=== PATIENT | female | born 1975 | race Caucasian/White ===

== ENCOUNTER → 2018-03-28 12:23 | Outpatient (CLI) | payer OTHER, SELFPAY ==
[2018-03-28 14:10] LABS: Erythrocyte Sedimentation Rate 19 mm/hr (0-20)
[2018-03-28 14:37] LABS: Anion Gap 8 (5-15); BUN 13 mg/dL (7-18); BUN/Creat Ratio 24.6 RATIO (10-20); Chloride 105 mmol/L (98-107); Creatinine, Serum 0.53 mg/dL (0.55-1.02); EST Glomerular Filtration Rate 135 mL/min (>60); Est Glom Filt Rate - Afr Amer 164 mL/min (>60); Glucose 74 mg/dL (74-106); Potassium 3.8 mmol/L (3.5-5.1); Sodium Level 139 mmol/L (136-145)
== END ==
PROVIDERS: Family Provider Family Medicine; PCP Family Medicine; Visit Provider Family Medicine
DX: M13.0 Polyarthritis, unspecified (principal)
CPT/HCPCS: 36415; 80048; 85652; 86140

== ENCOUNTER → 2018-04-26 14:58 | Outpatient (CLI) | payer OTHER, SELFPAY ==
[2018-05-01 09:20] LABS: HPV Reflexed? NOT INDICATED
== END ==
PROVIDERS: Visit Provider Obstetrics & Gynecology
DX: Z12.4 Encounter for screening for malignant neoplasm of cervix (principal)
CPT/HCPCS: 88175; G0145

== ENCOUNTER → 2018-07-08 12:58 | Outpatient (CLI) | payer OTHER, SELFPAY ==
--- NOTE | 2018-07-08 13:00 | BI_ITS ---
MAMMOGRAPHY - BILATERAL SCREENING REASON FOR EXAM: Female, 42 years old. Routine annual screening examination. PERTINENT HISTORY: Non-contributory. TECHNIQUE: Digital bilateral breast lauren (3D mammographic acquisition) in the CC and MLO projections. 2-D mediolateral oblique (MLO) and craniocaudad (CC) views of both breasts were obtained. CAD: Full Field Digital Mammography with Computer Added Detection was performed. COMPARISON: Comparison is made with prior study dated July 05, 2017 and September 01, 2014. FINDINGS: Breast Composition: The breasts are heterogeneously dense, which may obscure small masses. There are no dominant masses or suspicious calcifications. No other significant abnormalities are identified. There has been no significant change since the prior study. BI/SCREENING MAMM (CAD), BILAT IMPRESSION: Stable bilateral screening mammogram. Yearly follow-up mammogram recommended. (A) ASSESSMENT CATEGORY: BIRADS Category 1: Negative. A letter regarding these results will be sent to the patient by the facility within 30 days. Approximately 10% of breast cancers are not detected by mammography. A normal mammogram should not delay biopsy of a clinically suspicious abnormality. [id number] Electronically Signed: Gabo Christiansen MD at 14:59 EST Tel [phone], Service support ,
--- OUTSIDE RECORDS SUMMARY | 2018-08-31 20:22 | XMS RPT_ITS ---
:1975 Author Organization OHIP Care Team Providers Name Role Phone YANIRA DRAPER Attending Unavailable YANIRA DRAPER Referring Unavailable YANIRA DRAPER Attending Unavailable YANIRA DRAPER Referring Unavailable JUANCHO HASKINS Attending Unavailable MARGIE YADAV Referring Unavailable CARLI GARCÍA Attending Unavailable MARGIE YADAV Referring Unavailable JUANCHO HASKINS Referring Unavailable Margie Yadav Attending Unavailable Margie Yadav Primary Care Unavailable Patricia Solo Attending Unavailable Patricia Solo Attending Unavailable Patricia Solo Referring Unavailable Margie Yadav Primary Care Unavailable PROBLEMS PROBLEMS DATE TYPE CONDITION / CODE ATTENDING STATUS SOURCE 01/10/2011 Active Other specified NA Active [facility] abnormal Main [place] immunological Repository findings in serum / R76.8(ICD-10) 07/12/2018 Active Pain in unspecified NA Active [facility] foot / [place] M79.673(ICD-10) Repository 07/12/2018 Active Pain in unspecified NA Active [facility] joint / [place] M25.50(ICD-10) Repository 06/08/2018 Active Encounter for NA Active [facility] immunization / [place] Z23(ICD-10) Repository 04/26/2018 Unknown Z12.4 - Encounter Patricia Solo Active [place] for screening for Community malignant neoplasm [facility] / Repository Z12.4(ICD-10) PROCEDURES PROCEDURES No Procedure Records FoundRESULTS RESULTS COMP METABOLIC PANEL Collected: 07/12/2018 Status: F Source: [facility] 4:11 [facility] REPOSITORY TYPE CODE TESTS RESULT OUT OF REFERENCE UNITS RANGE LAB TP 6.3-8.0 g/dL Protein, Total 7.7 LAB ALB 3.9-4.9 g/dL Albumin 4.6 LAB CA 8.5-10.2 mg/dL Calcium, Total 9.5 LAB TBIL 0.2-1.3 mg/dL Bilirubin, Total 0.2 LAB ALKP 34-123 U/L Alkaline Phosphatase 75 LAB AST 13-35 U/L AST 17 LAB GLU 74-99 mg/dL Glucose 87 Result Comment: The [place] Diabetes Association (ADA) provides guidance for cutoff values for fasting glucose and random glucose. The ADA defines fasting as no caloric intake for at least 8 hours. Fas ting plasma glucose results between 100 to 125 mg/dL indicate increased risk for diabetes (prediabetes). Fasting plasma glucose results greater than or equal to 126 mg/dL meet the criteria for diagnosis of diabetes. In the absence of unequivocal hyperglycemia, results should be confirmed by repeat testing. In a patient with classic symptoms of hyperglycemia or hyperglycemic crisis, random plasma glucose results greater than or equal to 200 mg/dL meet the criteria for diagnosis of diabetes. Reference: Standards of Medical Care in Diabetes 2016, [place] Diabetes Association. Diabetes Care. 2016.39(Suppl 1). LAB BUN 7-21 mg/dL BUN 11 LAB CRET 0.58-0.96 mg/dL Creatinine 0.58 LAB NA 136-144 mmol/L Sodium 137 LAB K 3.7-5.1 mmol/L Potassium 3.8 LAB CL 97-105 mmol/L Chloride 100 LAB CO2 22-30 mmol/L CO2 27 LAB AGAP 9-18 mmol/L Anion Gap 10 LAB ALT 7-38 U/L ALT 16 LAB GFRAA eGFR- Amer. >60 LAB GFRNAA . eGFR-All Other Races >60 Result Comment: eGFR (Estimated GFR) Units of measure: mL/min/1.73 meters squared eGFR is derived from the reexpressed MDRD Study equation using the following parameters: serum creatinine, age, gender and race. The creatinine assay has been calibrated to be traceable to IDMS. An eGFR <60 mL/min/1.73m2 for >3 months is consistent with chronic kidney disease. Refer to KDOQI guidelines for clinical interpretation. In patients with unstable renal function, e.g. those with acute kidney injury, the eGFR may not accurately reflect actual GFR. Performed By: #### CMP, HSCRP, TSH, HOMCYS, CBCDIF, FREET3, FT4, B12, VITD, ANAIFR, ANABLL, CCP, ENAID, DNA, CRITH #### [facility] [address] [phone] #### RHEUMA #### [facility] [address] [place] [address] [phone] ULTRA-SENSITIVE CRP Collected: 07/12/2018 Status: F Source: [place] 4:11 PM [facility] REPOSITORY TYPE CODE TESTS RESULT OUT OF REFERENCE UNITS RANGE LAB CRPUS <3.1 mg/L High UltraSens 14.3 C-ReacProt Result Comment: (NOTE) hsCRP < 1.0 mg/L, relative risk is low hsCRP 1.0-3.0 mg/L, relative risk is average hsCRP > 3.0 mg/L, relative risk is high Reference: Nati TA, Yanira GA, Nehemias RW, et al. Markers of Inflammation and Cardiovascular Disease. Application to Clinical and Public Health Practice. A Statement for Healthcare Professionals From the Centers for Disease Control and Prevention and the [place] Heart Association. Circulation 2003;107:499-511. Performed By: #### CMP, HSCRP, TSH, HOMCYS, CBCDIF, FREET3, FT4, B12, VITD, ANAIFR, ANABLL, CCP, ENAID, DNA, CRITH #### [facility] [address] [address] #### RHEUMA #### [facility] [address] [place] [address] [phone] TSH Collected: 07/12/2018 Status: F Source: [place] 4:11 PM [facility] REPOSITORY TYPE CODE TESTS RESULT OUT OF RANGE REFERENCE UNITS LAB TSH 0.400-5.500 uU/mL TSH 3.070 Result Comment: If the patient is , TSH reference range varies by gestational period: First Trimester 0.100-2.500 uU/mL Second Trimester 0.200-3.000 uU/mL Third Trimester 0.300-3.000 uU/mL References: 1. Lewis L, Manuel M, Nehemias EK, et al. Management of Thyroid Dysfunction during and : An Endocrine Society Clinical Practice Guideline. J Clin Endocrinol Metab, 2012:97:0328-5040. 2. Lei BTUTS. Overview of thyroid disease in . UpToDate. 2016. Accessed on January 21, 2016. Performed By: #### CMP, HSCRP, TSH, HOMCYS, CBCDIF, FREET3, FT4, B12, VITD, ANAIFR, ANABLL, CCP, ENAID, DNA, CRITH #### [place] [id number] [place] [phone] #### RHEUMA #### [facility] [address] [place] [address] [phone] HOMOCYSTEINE Collected: 07/12/2018 Status: F Source: [place] 4:11 PM [facility] REPOSITORY TYPE CODE TESTS RESULT OUT OF REFERENCE UNITS RANGE LAB HOMCYS <15.1 umol/L Homocysteine 8.5 Performed By: #### CMP, HSCRP, TSH, HOMCYS, CBCDIF, FREET3, FT4, B12, VITD, ANAIFR, ANABLL, CCP, ENAID, DNA, CRITH #### [place] [id number] [place] [address] #### RHEUMA #### [facility] [address] [place] [address] [phone] CBC AND DIFFERENTIAL Collected: 07/12/2018 Status: F Source: [place] 4:11 PM [facility] REPOSITORY TYPE CODE TESTS RESULT OUT OF REFERENCE UNITS RANGE LAB WBC 3.70-11.00 k/uL WBC 6.00 LAB RBC 3.90-5.20 m/uL RBC 4.70 LAB HGB 11.5-15.5 g/dL Hemoglobin 12.9 LAB HCT 36.0-46.0 % Hematocrit 41.4 LAB MCV 80.0-100.0 fL MCV 88.1 LAB MCH 26.0-34.0 pG MCH 27.4 LAB MCHC 30.5-36.0 g/dL MCHC 31.2 LAB RDWCV 11.5-15.0 % RDW-CV 13.0 LAB PLTCT 150-400 k/uL Platelet Count 238 LAB MPV 9.0-12.7 fL MPV 11.1 LAB ANEUT % Neut% 76.9 LAB AANEUT 1.45-7.50 k/uL Abs Neut 4.59 LAB ALYMP % Lymph% 16.7 LAB AALYMP 1.00-4.00 k/uL Abs Lymph 1.00 LAB AMONO % Lipscomb% 5.3 LAB AAMONO <0.87 k/uL Abs Lipscomb 0.32 LAB AEOS % Eosin% 0.8 LAB AAEOS <0.46 k/uL Abs Eosin 0.05 LAB ABASO % Baso% 0.3 LAB AABASO <0.11 k/uL Abs Baso <0.03 LAB AUNRBC 0 /100 WBC NRBCs 0.0 LAB ABNRBC <0.01 k/uL Absolute nRBC <0.01 LAB DTYP DTYPE Auto Diff Performed By: #### CMP, HSCRP, TSH, HOMCYS, CBCDIF, FREET3, FT4, B12, VITD, ANAIFR, ANABLL, CCP, ENAID, DNA, CRITH #### [place] [address] #### RHEUMA #### [facility] [address] [place] [address] [phone] FREE T3 Collected: 07/12/2018 Status: F Source: [place] 4:11 [facility] REPOSITORY TYPE CODE TESTS RESULT OUT OF RANGE REFERENCE UNITS LAB FREET3 2.3-4.1 pg/mL Free T3 3.0 Performed By: #### CMP, HSCRP, TSH, HOMCYS, CBCDIF, FREET3, FT4, B12, VITD, ANAIFR, ANABLL, CCP, ENAID, DNA, CRITH #### [place] [address] [id number] [place] [address] #### RHEUMA #### [facility] [address] [place] [address] [phone] FREE T4 Collected: 07/12/2018 Status: F Source: [place] 4:11 PM [facility] REPOSITORY TYPE CODE TESTS RESULT OUT OF RANGE REFERENCE UNITS LAB FT4 0.9-1.7 ng/dL Free T4 1.4 Performed By: #### CMP, HSCRP, TSH, HOMCYS, CBCDIF, FREET3, FT4, B12, VITD, ANAIFR, ANABLL, CCP, ENAID, DNA, CRITH #### [place] [phone] #### RHEUMA #### [address] [address] [phone] VITAMIN B12 Collected: 07/12/2018 Status: F Source: [place] 4:11 PM [facility] REPOSITORY TYPE CODE TESTS RESULT OUT OF REFERENCE UNITS RANGE LAB B12 232-1245 pg/mL Vitamin B12 363 Performed By: #### CMP, HSCRP, TSH, HOMCYS, CBCDIF, FREET3, FT4, B12, VITD, ANAIFR, ANABLL, CCP, ENAID, DNA, CRITH #### [place] [phone] #### RHEUMA #### [address] [address] [phone] VITAMIN D 25 HYDROXY Collected: 07/12/2018 Status: F Source: [place] 4:11 PM [facility] REPOSITORY TYPE CODE TESTS RESULT OUT OF REFERENCE UNITS RANGE LAB VITD 31.0-80.0 ng/mL Vitamin D 25 56.1 Hydroxy Result Comment: Classification of 25 [place] Vitamin D status: Insufficiency/Moderate Deficiency: < or = 30 ng/mL Sufficiency/Optimal Levels: 31 to 80 ng/mL Toxicity: > 100 ng/mL Test performed by chemiluminescent immunoassay. Performed By: #### CMP, HSCRP, TSH, HOMCYS, CBCDIF, FREET3, FT4, B12, VITD, ANAIFR, ANABLL, CCP, ENAID, DNA, CRITH #### [place] [phone] #### RHEUMA #### [address] [address] [phone] NORMA BY IFA W/REFLEX Collected: 07/12/2018 Status: F Source: L[place] 4:11 [facility] REPOSITORY TYPE CODE TESTS RESULT OUT OF RANGE REFERENCE UNITS LAB ANASC Negative Abnormal Alert NORMA Positive Result Comment: Normal range : negative at <1:80 serum dilution. LAB GINA Negative Abnormal >1:1280 Alert NORMA Titer LAB ANAP NORMA Pattern Nucleolar Performed By: #### CMP, HSCRP, TSH, HOMCYS, CBCDIF, FREET3, FT4, B12, VITD, ANAIFR, ANABLL, CCP, ENAID, DNA, CRITH #### [place] [address] #### RHEUMA #### [address] [address] [phone] NORMA IFA TITER BILL Collected: 07/12/2018 Status: F Source: [place] 4:11 [facility] REPOSITORY TYPE CODE TESTS RESULT OUT OF REFERENCE UNITS RANGE LAB ANABLL NORMA Billed for IFA Titer services Bill performed Performed By: #### CMP, HSCRP, TSH, HOMCYS, CBCDIF, FREET3, FT4, B12, VITD, ANAIFR, ANABLL, CCP, ENAID, DNA, CRITH #### [place] [address] #### RHEUMA #### [address] [address] [phone] CCP ANTIBODY, IGG Collected: 07/12/2018 Status: F Source: LYLE 4:[address] [place] [address] REPOSITORY TYPE CODE TESTS RESULT OUT OF REFERENCE UNITS RANGE LAB CCPABG <20 Units CCP <15 Antibody, IgG Result Comment: < 20 units: Negative 20-39 units: Weak Positive 40-59 units: Moderate Positive > 60 units: Strong Positive The following results were obtained with the [employer] QUANTA Lite CCP3 IgG ARIANNA. Anti-CCP values obtained with different manufacturers' assay methods may not be used interchangeably. The magnitude of the reported IgG levels cannot be correlated to an endpoint titer. Performed By: #### CMP, HSCRP, TSH, HOMCYS, CBCDIF, FREET3, FT4, B12, VITD, ANAIFR, ANABLL, CCP, ENAID, DNA, CRITH #### [place] [id number] [place] [address] #### RHEUMA #### [address] [address] [phone] AUTSIN ANTIBODY PANEL Collected: 07/12/2018 Status: F Source: [place] 4:11 PM [facility] [place] REPOSITORY TYPE CODE TESTS RESULT OUT OF REFERENCE UNITS RANGE LAB SMIB <1.0 AI Sm Antibody <0.2 Result Comment: NEGATIVE Negative: <1.0 AI Positive: >0.9 AI LAB RNPIB <1.0 AI DEALER SALES MANAGER Antibody <0.2 Result Comment: NEGATIVE Negative: <1.0 AI Positive: >0.9 AI LAB SSAIB <1.0 AI SSA Antibody <0.2 Result Comment: NEGATIVE Negative: <1.0 AI Positive: >0.9 AI LAB SSBIB <1.0 AI High SSB Antibody 1.4 Result Comment: POSITIVE Negative: <1.0 AI Positive: >0.9 AI LAB CENTIB <1.0 AI Centromere High >8.0 Result Comment: POSITIVE Negative: <1.0 AI Positive: >0.9 AI LAB SCLIB <1.0 AI Scleroderma IgG Ab <0.2 Result Comment: NEGATIVE Negative: <1.0 AI Positive: >0.9 AI LAB JO1IB <1.0 AI LISA 1 Antibody <0.2 Result Comment: NEGATIVE Negative: <1.0 AI Positive: >0.9 AI LAB RRNPIB <1.0 AI Ribosomal DEALER SALES MANAGER <0.2 Result Comment: NEGATIVE Negative: <1.0 AI Positive: >0.9 AI LAB CHRMIB <1.0 AI Chromatin Antibody <0.2 Result Comment: NEGATIVE Negative: <1.0 AI Positive: >0.9 AI Performed By: #### CMP, HSCRP, TSH, HOMCYS, CBCDIF, FREET3, FT4, B12, VITD, ANAIFR, ANABLL, CCP, ENAID, DNA, CRITH #### [facility] [address] [place], [place] [address] #### RHEUMA #### [address] [address] [phone] DNA ANTIBODY W/ CONF. Collected: 07/12/2018 Status: F Source: [place] 4:11 [facility] REPOSITORY TYPE CODE TESTS RESULT OUT OF REFERENCE UNITS RANGE LAB DNA <30 IU/mL High DNA Antibody 116 w/ Conf. Result Comment: Positive for ds DNA Antibodies Negative: <30 IU/mL Equivocal: 30-74 IU/mL Positive: >74 IU/mL Performed By: #### CMP, HSCRP, TSH, HOMCYS, CBCDIF, FREET3, FT4, B12, VITD, ANAIFR, ANABLL, CCP, ENAID, DNA, CRITH #### [facility] [address] [place], [place] [address] #### RHEUMA #### [facility] [address] [place] [address] [phone] OMEGACHECK Collected: 07/12/2018 Status: F Source: [place] 4:11 [facility] REPOSITORY TYPE CODE TESTS RESULT OUT OF REFERENCE UNITS RANGE LAB OMEGAL >5.4 % by wt Low OmegaCheck 4.6 Result Comment: (NOTE) Increasing blood levels of long-chain n-3 fatty acids are associated with a lower risk of sudden cardiac (1). Based on the top (75th percentile) and bottom (25th percentile) quartiles of the CHL reference population, the following risk categories were established for OmegaCheck: A cut-off of >=5.5% by wt defines a population at low relative risk, 3.8-5.4% by wt defines a population at moderate relative risk, and <=3.7% by wt defines a population at high relative risk of sudden cardiac . The totality of the scientific evidence demonstrates that when consumption of fish oils is limited to 3 g/day or less of EPA and DHA, there is no significant risk for increased bleeding time beyond the normal range. A daily dosage of 1 gram of EPA and DHA lowers the circulating triglycerides by about 7-10% within 2 to 3 weeks. (Reference: 1-Checo harrison al. NEJ. 2002; 346: 1628-9261). This test is performed by a Liquid Chromatography-Tandem Mass Spectrometry (LC/MS/MS) method. This test was developed and its performance characteristics determined by the [facility]. It has not been cleared or approved by the U.S. FDA. The [facility] is regulated under Clinical Laboratory Improvement Amendments (CLIA) as qualified to perform high-complexity testing. This test is used for clinical purposes. It should not be regarded as investigational or for research. LAB ARACHE <5.0 High Arach A/EPA 11.9 Ratio Result Comment: (NOTE) Test performed at: [facility] [address], [facility] [address] [place] [address] Christina Duff, PH.D., DABCC, FACB LAB OMEG63 <4.5 High [place]trim-6/3 Ratio 8.2 LAB OMEGA3 % by wt [place]trim 3 Total 4.6 LAB OMEEPA >2.0 % by wt Low EPA 0.8 LAB OMEDPA >1.0 % by wt DPA 1.1 LAB OMEDHA >4.0 % by wt Low DHA 2.7 LAB OMEGA6 % by wt [place]trim 6 Total 37.8 Result Comment: (NOTE) [facility] measures a number of omega-6 fatty acids with AA and LA being the two most abundant forms reported. LAB ARACHA <9.0 % by wt Arachidonic Acid High 9.5 LAB ARACHL <20.0 % by wt Linoleic Acid High 26.3 Performed By: #### CMP, HSCRP, TSH, HOMCYS, CBCDIF, FREET3, FT4, B12, VITD, ANAIFR, ANABLL, CCP, ENAID, DNA, CRITH #### [facility] [address] [place], [place] [address] #### RHEUMA #### [facility] [address] [place] [address] [phone] RHEUMATOID FCTOR MGA Collected: 07/12/2018 Status: F Source: L[place] 4:11 PM [facility] REPOSITORY TYPE CODE TESTS RESULT OUT OF REFERENCE UNITS RANGE LAB RHFIGG 0-6 Units High Rheumatoid Fctor 8 IgG Result Comment: (NOTE) INTERPRETIVE INFORMATION: Rheumatoid Factor, IgG by ARIANNA The presence of all three rheumatoid factor (RF) isotypes at abnormal levels has high specificity for a diagnosis of rheumatoid arthritis (RA). However, the presence of RF isotypes in any combination may be found in a variety of conditions, including Sjogren syndrome and hepatitis infections. Performed by [facility], [address] [place] [address] www.[email or web address], Ivan Florentino MD, Lab. Director LAB RHFIGM 0-6 Units Rheumatoid High Fctor IgM 24 Result Comment: (NOTE) INTERPRETIVE INFORMATION: Rheumatoid Factor, IgM by ARIANNA The presence of all three rheumatoid factor (RF) isotypes at abnormal levels has high specificity for a diagnosis of rheumatoid arthritis (RA). However, the presence of RF isotypes in any combination may be found in a variety of conditions, including Sjogren syndrome and hepatitis infections. LAB RHFIGA 0-6 Units Rheumatoid Fctor IgA 2 Result Comment: (NOTE) INTERPRETIVE INFORMATION: Rheumatoid Factor, IgA by ARIANNA The presence of all three rheumatoid factor (RF) isotypes at abnormal levels has high specificity for a diagnosis of rheumatoid arthritis (RA). However, the presence of RF isotypes in any combination may be found in a variety of conditions, including Sjogren syndrome and hepatitis infections. Performed By: #### CMP, HSCRP, TSH, HOMCYS, CBCDIF, FREET3, FT4, B12, VITD, ANAIFR, ANABLL, CCP, ENAID, DNA, CRITH #### [facility] [address] [place] [address] #### RHEUMA #### [address] [address] [phone] CRITHIDIA LUCILIAE Collected: 07/12/2018 Status: F Source: [place] 4:11 PM [facility] [place] REPOSITORY TYPE CODE TESTS RESULT OUT OF REFERENCE UNITS RANGE LAB CRI Negative Crithidia Negative luciliae Performed By: #### CMP, HSCRP, TSH, HOMCYS, CBCDIF, FREET3, FT4, B12, VITD, ANAIFR, ANABLL, CCP, ENAID, DNA, CRITH #### [facility] [address] [place] [address] #### RHEUMA #### [facility] [address] [place] [address] [phone] SCREENING MAMM (CAD), Observed: 07/08/2018 Status: F Source: [place] B[place] 1:00 [facility] REPOSITORY [facility] Imaging Services [address] [place] [address] SCREENING MAMM (CAD), BILAT MR#: [id number] Acct: [id number] Name: BEE MONTEIRO Rep #: [id number] : 1975 F 42 From: Gabo Christiansen MD PCP: Margie Yadav MD Status: REG CLI Study: SCREENING MAMM (CAD), BILAT Date of Exam: 07/08/18 Exam# [id number] Ordering Dr: Patricia Solo MD MAMMOGRAPHY - BILATERAL SCREENING REASON FOR EXAM: Female, 42 years old. Routine annual screening examination. PERTINENT HISTORY: Non-contributory. TECHNIQUE: Digital bilateral breast lauren (3D mammographic acquisition) in the CC and MLO projections. 2-D mediolateral oblique (MLO) and craniocaudad (CC) views of both breasts were obtained. CAD: Full Field Digital Mammography with Computer Added Detection was performed. COMPARISON: Comparison is made with prior study dated July 05, 2017 and September 01, 2014. FINDINGS: Breast Composition: The breasts are heterogeneously dense, which may obscure small masses. There are no dominant masses or suspicious calcifications. No other significant abnormalities are identified. There has been no significant change since the prior study. BI/SCREENING MAMM (CAD), BILAT IMPRESSION: Stable bilateral screening mammogram. Yearly follow-up mammogram recommended. (A) ASSESSMENT CATEGORY: BIRADS Category 1: Negative. A letter regarding these results will be sent to the patient by the facility within 30 days. Approximately 10% of breast cancers are not detected by mammography. A normal mammogram should not delay biopsy of a clinically suspicious abnormality. [id number] Electronically Signed: Gabo Christiansen MD at 14:59 EST Tel [phone], Service support , CC: Margie Yadav MD; Patricia Solo MD Senior Software Analyst: Signed CNNURSE Observed: 06/08/2018 Status: COMPLETED Source: [place] 11:00 AM [facility] REPOSITORY Nurse Visit (CORWST) BEE MONTEIRO ([id number]) 1975 F Date Time Provider Department 06/08/18 11:00 AM NURSE [facility] During your visit today, we recorded the following information about you: María Avalos Ma 06/08/2018 11:23 AM Signed 42 year old female here for INACTIVATED INFLUENZA VACCINE. 4492-7360 Season Patient is identified by name and date of : Yes [] CONTRAINDICATIONS color enhanced section Age less than 6 months? No Allergy to eggs, chicken, chicken feathers, or chicken dander? No Allergy to thimerosal (a preservative) or formaldehyde, gelatin? No History of severe reaction to any vaccine component or a previous dose of influenza vaccination? No History of Guillain-[place] Syndrome within 6 weeks after a previous influenza vaccine? No Patient is not moderately or severely ill? No Current temperature greater or equal to 100.4F? No History of Bone Marrow Transplant prior 6 months or solid organ transplant in the past 3 months ? No History of fainting after a prior injection or medical procedure? No- ? If patient has fainted in the past, the CDC recommends sitting or lying down for 15 minutes after the vaccination. [] VERIFICATION color enhanced section Was the answer Yes for any of the above contraindications? No contraindications present. Acceptable to proceed with vaccine. Patient/guardian agrees the above answers are true to the best of their knowledge? Yes Flu vaccine information sheet given? Yes See immunization activity in [facility] for details of immunizations adminstered today. Patient age: [age] year old For The 5936-9722 Flu Season 6-35 months old: Fluzone 0.25 ml - IM (Preservative Free) 3 years of age: Fluzone 0.5 ml - IM (Preservative Free) 3 years and older: Fluzone 0.5 ml- IM-(with Preservatives) 65+ years old: 2-49 years old Fluzone High-Dose 0.5 ml - IM (Preservative Free) FLUMIST- intranasal REMEMBER: If patient is less than 9 years of age and this is the first vaccine of Influenza to be received in any flu season, they should receive a second dose in one months time. Referring Provider: SELF [200] Allergies As of Date: 06/08/2018 Noted Allergy Reaction SEASONAL ALLERGIES 05/20/2018 14 - Other: See Comments Comments: Runny eyes and nose Date Reviewed: 05/20/2018 Reviewed by: Manuel Brennan - Fully Assessed Reason for Visit: Imm/Inj [58] Cmt: Flu Vaccine Primary Visit Diagnosis:Need for vaccination [Z23] Order(s):INFLUENZA VACCINE QUADRIVALENT AGE 3 YRS PLUS + IM [[id number]] Order #: [id number] Prescriptions as of 06/08/2018 Sig: KYM-D 12 HOUR ORAL Take by mouth. OTC NUTRITIONAL SUPPLEMENT Take 1 in AM and 1 before bed OTC NUTRITIONAL SUPPLEMENT Work up to 3 capsules with me* OTC NUTRITIONAL SUPPLEMENT Take 2 capsules by mouth twic* OTC NUTRITIONAL SUPPLEMENT Take one teaspoon (5 ml) opal* OTC NUTRITIONAL SUPPLEMENT Take 1 capsule by mouth once * OTC NUTRITIONAL SUPPLEMENT Take 1 capsule by mouth daily* MELOXICAM ORAL Take by mouth. Problem List As Of Date 06/08/2018 Noted Resolved Sebaceous Cyst [L72.3] INVALID FOR* Wrist Pain [M25.539] INVALID FOR* Lupus [L93.0] INVALID FOR*06/27/2010 Cuboid fracture [S92.213A] INVALID FOR* Cyst INVALID FOR* Sprain and strain of unspecified site of foot [*INVALID FOR* NORMA positive [R76.8] INVALID FOR* Joint pain [M25.50] INVALID FOR* Foot pain [M79.673] INVALID FOR* Hand weakness [R29.898] INVALID FOR* Encounter Status:Closed by MARÍA AVALOS MA on 06/08/18 PROGRESS Observed: 06/04/2018 Status: COMPLETED Source: L[place] 2:01 PM [facility] REPOSITORY HNO ID: [id number] Author: María Avalos Ma Service: (none) Author Type: (none) Type: Progress Notes Filed: 06/08/2018 11:23 AM Note Text: 42 year old female here for INACTIVATED INFLUENZA VACCINE. 3693-4670 Season Patient is identified by name and date of : Yes [] CONTRAINDICATIONS color enhanced section Age less than 6 months? No Allergy to eggs, chicken, chicken feathers, or chicken dander? No Allergy to thimerosal (a preservative) or formaldehyde, gelatin? No History of severe reaction to any vaccine component or a previous dose of influenza vaccination? No History of Guillain-[place] Syndrome within 6 weeks after a previous influenza vaccine? No Patient is not moderately or severely ill? No Current temperature greater or equal to 100.4F? No History of Bone Marrow Transplant prior 6 months or solid organ transplant in the past 3 months ? No History of fainting after a prior injection or medical procedure? No- ? If patient has fainted in the past, the CDC recommends sitting or lying down for 15 minutes after the vaccination. [] VERIFICATION color enhanced section Was the answer Yes for any of the above contraindications? No contraindications present. Acceptable to proceed with vaccine. Patient/guardian agrees the above answers are true to the best of their knowledge? Yes Flu vaccine information sheet given? Yes See immunization activity in [facility] for details of immunizations adminstered today. Patient age: [age] year old For The 1475-1056 Flu Season 6-35 months old: Fluzone 0.25 ml - IM (Preservative Free) 3 years of age: Fluzone 0.5 ml - IM (Preservative Free) 3 years and older: Fluzone 0.5 ml- IM-(with Preservatives) 65+ years old: 2-49 years old Fluzone High-Dose 0.5 ml - IM (Preservative Free) FLUMIST- intranasal REMEMBER: If patient is less than 9 years of age and this is the first vaccine of Influenza to be received in any flu season, they should receive a second dose in one months time. PROGRESS Observed: 05/20/2018 Status: COMPLETED Source: LYLE 1:27 PM [facility] REPOSITORY O ID: [id number] Author: David Stack Service: (none) Author Type: Educator Type: Progress Notes Filed: 05/20/2018 1:31 PM Note Text: GROUP HEALTH DOOR CLAMP OPERATOR COHORT Subjective: I would like to reduce my pain level in my joints and feet. I also have high inflammation levels that I would like to bring down to normal. MSQ: 52 ........................................................................... .................................................................. LIFESTYLE ACTION PLAN: Sleep: No issues listed Exercise/Movement:Aerobic video and walking 3x/30 min, free weights, pilates Nutrition:low carb,no wheat Stress:no excessive stress, does not handle easily. Relationships/Connection: Overall 5/5. Self-Care:Decorating, Reading, Bible Study, spending time with my family Confidence, Willingness and Readiness: somewhat to extremely willing. Extremely supportive. Not very frequent support needed. ........................................................................... ................................................................. FOLLOW UP: Educational materials provided: Vision to Reality, Resource sheet, and Health coaching information. Additional support needed: Phone Consultations with Health Precast Concrete Ironworker HUBER Observed: 05/20/2018 Status: COMPLETED Source: GLEN 12:15 PM [facility] REPOSITORY [facility] BEE MONTEIRO ([id number]) 1975 F Date Time Provider Department 05/20/18 12:15 PM DAVID STACK [facility] During your visit today, we recorded the following information about you: David Stack Health Precast Concrete Ironworker 05/20/2018 1:31 PM Signed GROUP HEALTH DOOR CLAMP OPERATOR COHORT Subjective: I would like to reduce my pain level in my joints and feet. I also have high inflammation levels that I would like to bring down to normal. MSQ: 52 ...............................................................................- .............................................................. LIFESTYLE ACTION PLAN: Sleep: No issues listed Exercise/Movement:Aerobic video and walking 3x/30 min, free weights, pilates Nutrition:low carb,no wheat Stress:no excessive stress, does not handle easily. Relationships/Connection: Overall 12/08. Self-Care:Decorating, Reading, Bible Study, spending time with my family Confidence, Willingness and Readiness: somewhat to extremely willing. Extremely supportive. Not very frequent support needed. ...............................................................................- ............................................................. FOLLOW UP: Educational materials provided: Vision to Reality, Resource sheet, and Health coaching information. Additional support needed: Phone Consultations with Health Precast Concrete Ironworker Referring Provider: SELF [[id number]] Allergies As of Date: 05/20/2018 Noted Allergy Reaction SEASONAL ALLERGIES 05/20/2018 14 - Other: See Comments Comments: Runny eyes and nose Date Reviewed: 05/20/2018 Reviewed by: Manuel Brennan - Fully Assessed Reason for Visit: Patient Education [91] Primary Visit Diagnosis:Encounter for person encountering health services [Z76.89] Prescriptions as of 05/20/2018 Sig: MELOXICAM ORAL Take by mouth. Problem List As Of Date 05/20/2018 Noted Resolved Sebaceous Cyst [L72.3] INVALID FOR* Wrist Pain [M25.539] INVALID FOR* Lupus [L93.0] INVALID FOR*06/27/2010 Cuboid fracture [S92.213A] INVALID FOR* Cyst INVALID FOR* Sprain and strain of unspecified site of foot [*INVALID FOR* NORMA positive [R76.8] INVALID FOR* Joint pain [M25.50] INVALID FOR* Foot pain [M79.673] INVALID FOR* Hand weakness [R29.898] INVALID FOR* Encounter Status:Closed by [facility] HEALTH DOOR CLAMP OPERATORDAVID on 05/20/18 CNCNPATED Observed: 05/20/2018 Status: COMPLETED Source: LYLE 11:15 AM [facility] REPOSITORY [facility] BEE MONTEIRO ([id number]) 1975 F Date Time Provider Department 05/20/18 11:15 AM CARLI GARCÍA [facility] Reason for Visit: Patient Education [91] Progress Notes: Carli García RD 05/20/2018 1:41 PM Signed [facility] Nutrition Therapy: Initial Assessment (Group) Patient Name: Bee Monteiro Class Topic: Functional Nutrition and Elimination Diet Introduction Education Materials: IFM Elimination Diet Food List, Weekly Senior Controls Technician and Recipes, Comprehensive Guide, Adaptable Meals, Dirty Dozen Chief Concerns: 1. Pain in feet and joints I would like to reduce my pain level in my joints and feet. I also have high inflammation levels that I would like to bring down to normal. MSQ Score: 20 Is the patient having any pain that is interfering with oral intake? No Past Medical History: PAST MEDICAL HISTORY Diagnosis Date - PMH - PAST MEDICAL HISTORY OF has chance of blood clots when due to a 'clotting disorder' Anthropometrics: There were no vitals taken for this visit. Height: Last 1 Encounter Ht Readings: Date: Ht: 12/12/2017 168.3 cm (5' 6.26) Current weight: Last 1 Encounter Wt Readings: Date: Wt: 12/12/2017 63.1 kg (139 lb 3.2 oz) Wt: 63.1 kg (139 lb 3.2 oz) BMI: 22.29 kg/(m2) RMR can't be calculated - Weight unrecorded in last 120 days. Lifestyle: Weight issues: Yes, weigh gain Adequate, restful sleep?: No, 7 hours with difficulty Currently exercising?: Yes, brisk walking, working with a assistive technology trainer GI symptoms:Yes, cold sores Dietary pattern: Current diet: Yes, Low Carb, No Wheat Food allergies:No Food sensitivities: Yes, Monosodium Glutamate-MSG, Artificial Sweetners, Sulfite-containing foods like wine, dried fruit, salad bars, Preservatives Reported lifestyle behaviors and eating habits: Fast eater, Love to eat Diet Recall: Yes Breakfast Biblical bread with almond butter fresh fruit with plain organic yogurt egg Lunch Large iron salad fresh veggies and hummus lean meat grapes Dinner Chicken brown rice broccoli large salad with veggies Snacks Apples, almonds, pistachios, nut thins with hummus, veggies with hummus, grapes, clementines, energy bites Fluids Water Excessive stress reported?: No 42 year old female presents for nutrition assessment relative to osteoarthritis. C/o chronic pain in feet, cold sores, intolerance to gluten. Past medical history is notable for eczema. Diet recall includes healthful variety of whole foods, includes dariy. Due to inflammatory symptoms of pain, skin problems, patient would benefit from whole foods, plant based, low glycemic food plan that minimizes potential food triggers and utilizes strategies to aid in good digestion. Provider Nutrition Notes: elimination diet Nutrition Diagnosis: Food and nutrition related knowledge deficit related to lack of prior education as evidenced by patient's verbalized inaccurate/incomplete information. Nutrition Intervention 05/20/2018: Nutrition education: 1. Whole foods, plant based, low glycemic, comprehensive elimination diet 2. Adequate hydration 3. Self-Monitoring: Track food/beverage intake 4. Schedule follow up for food reintroduction and further personalization of eating plan Nutrition Monitoring AND Evaluation: Adherence to elimination diet Criteria: Patient recall, food diary Follow up: 8 weeks Time Spent: 60 minutes Referred/Supervised by: Dr. Juancho Haskins Consult Billing Type: Group/60 minutes Number of Increments: 2 (60 minutes) Signed by: Carli García RD Primary Visit Diagnosis:Pain of foot, unspecified laterality [M79.673] Other Visit Diagnoses:Other chronic pain [G89.29] Dietary counseling and surveillance [Z71.3] During your visit today, we recorded the following information about you: Allergies As of Date: 05/20/2018 Noted Allergy Reaction SEASONAL ALLERGIES 05/20/2018 14 - Other: See Comments Comments: Runny eyes and nose Date Reviewed: 05/20/2018 Reviewed by: Manuel Brennan - Fully Assessed Prescriptions as of 05/20/2018 Sig: MELOXICAM ORAL Take by mouth. Encounter Status:Closed by CARLI GARCÍA on 05/20/18 PROGRESS Observed: 05/20/2018 Status: COMPLETED Source: LYLE 9:46 AM [facility] REPOSITORY O ID: [id number] Author: Manuel Brennan Service: (none) Author Type: (none) Type: Progress Notes Filed: 05/20/2018 11:08 AM Note Text: Bioelectrical Impedance Analysis Results by [employer] Recent Results from: 05/20/18 at 9:45 AM BMI: 21.9 kg/m? General Test Result Range Phase Angle (PA) 4.7 Min: 6.8 Mean: 7.6 Max: 8.4 Basal Metabolic Rate (BMR) 1369 Min: 1282.5 Mean: 1457 Max: 1631.5 Fat AND Fat Free Mass Test Result Range Fat (lbs) 47.6 Min: 38.8 Mean: 64.6 Max: 90.4 Fat % 35.1 Min: 31.2 Mean: 38 Max: 44.8 Fat Free Mass (FFM) lbs 88.1 Min: 84.3 Mean: 100.1 Max: 115.9 Total Body Water Test Result Range TBW (lbs) 63.5 Min: 62.6 Mean: 74.5 Max: 86.4 TBW % of FFM 72.1 Min: 73.2 Mean: 74.5 Max: 75.8 Intracellular Water Test Result Range ICW (lbs) 32.7 Min: 34.6 Mean: 39.5 Max: 44.4 ICW % of FFM 37.1 Min: 38.1 Mean: 39.6 Max: 41.1 Extracellular Water Test Result Range ECW (lbs) 30.7 Min: 28 Mean: 35.1 Max: 42.2 ECW % of FFM 34.8 Min: 33.3 Mean: 34.9 Max: 36.5 MSQ Initial Blood pressure 121/74, pulse 75, height 167.6 cm (5' 6), weight 61.6 kg (135 lb 11.2 oz). Clock Test Completed? : No MoCA (Den Cognitive Assessment) Test Completed? No Folstein Test Completed?: No AMB ROOMING INTAKE FLOWSHEET DATA Risk Screening Do you have concerns about personal safety or safety in the home?: No Manuel NGO Observed: 05/20/2018 Status: COMPLETED Source: LYLE 9:15 AM [facility] REPOSITORY [facility] BEE MONTEIRO ([id number]) 1975 F Date Time Provider Department 05/20/18 9:15 AM JUANCHO HASKINS [facility] During your visit today, we recorded the following information about you: Pulse Blood pressure Weight Height 75/minute 121/74 61.6 kg 1.676 m Juancho Haskins MD 05/20/2018 11:08 AM Signed FUNCTIONAL MEDICINE INITIAL ASSESSMENT Patient: Bee Monteiro ALLERGIES Allergen Reactions - Seasonal Allergies Other: See Comments Runny eyes and nose Current Outpatient Prescriptions: fexofenadine/pseudoephedrine (KYM-D 12 HOUR ORAL) Take by mouth. Disp: Rfl: MELOXICAM ORAL Take by mouth. Disp: Rfl: Cortisol Diver'S Tender 90 ct. ([employer]) Stress, blood sugar, thyroid/hormones/adrenals/sleep/energy/anxiety Take 1 in AM and 1 before bed Disp: Rfl: 0 Magnesium Glycinate 120mg 3 at night Stress, blood sugar, thyroid/hormones/adrenals/sleep/energy/toxins/muscles/constipation/asthma Work up to 3 capsules with meals at night - can cause loose stools Disp: Rfl: 0 Meriva-SR (Lovely) Take 2 capsules by mouth twice daily. Disp: Rfl: OmegaGenics EPA-DHA 2325 Liquid 2800mg/tsp (High Concentrate EPA/DHA liquid) ([employer]) - fish oil Take one teaspoon (5 ml) daily with food Disp: Rfl: [address] (Klaire/Prothera) Take 1 capsule by mouth once daily. Disp: Rfl: Vitamin D3 5000 U (Pure Encapsulations) Take 1 capsule by mouth daily with food. Disp: Rfl: No current facility-administered medications for this visit. PAST MEDICAL HISTORY Diagnosis Date - PMH - PAST MEDICAL HISTORY OF has chance of blood clots when due to a 'clotting disorder' PAST SURGICAL HISTORY Procedure Laterality Date - NONE Social History Marital status: Spouse name: Years of education: Number of children: 1 Social History Main Topics Smoking status: Never Smoker Smokeless tobacco: Never Used Alcohol use: No Drug use: No Sexual activity: Yes Partners with: Male EVALUATION MSQ: 52 Patient Goals: Health Goals What do you hope to achieve in your visit with us? : I would like to reduce my pain level in my joints and feet. I also have high inflammation levels that I would like to bring down to normal. When was the last time you felt well? : One month ago when I was on prednisone Did something trigger your change in health? : Not in particular What makes you feel better? : Rest, exercise, healthy food, low stress What makes you feel worse? : Busyness, stress, bad food, lots of walking, working around my house, How does your condition affect you? : It is crippling. I can't walk when I am hurting really bad What do you think is happening and why? : I had blood work done and my inflammation levels were at a 12 and I was told normal levels are at 1-3. I have always struggled with high arches and have had to wear orthotics to walk comfortably. My feet are fighting orthotics now and they used to be the only way I got relief. What do you feel needs to happen for you to get better? : A miracle HPI: 42 year old comes here for initial visit. Always had foot pain since high school But has been getting worse since last few years. Feet, star in the arch and then involves the whole foot. Both feet, even with minimal exertion, wrist is another area which is issues, fingers will swell. More so in the joints. Saw rheumatology, testing was negative. just said take nsaids to help with pain , Taking meloxicam for 6 years which is helping, but not working as good. Sitting makes her whole body stiff and painful. Thinks it might be autoimmune Has been to electrophysiology technologist, has not been helpful. 2010 things getting worse after of second child. Recently tried prednisone and worked great. Timeline: See Petr Tirado : full term, vaginal, breast fed Ear infections: several antibiotics Elementary: No problems, no further antibiotics. Middle: No problems. 12-13 years menarche , no problems HS: no problem [employer] 1998- . 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 depression, 6 months better. 2004 moved back home, helped with mood 2008 - second child, again depression. 2010 - stress fracture in foot, and then symptoms got worse. 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 Triggers/Mediators: antibiotic Labs: none Review of Systems: See Living Candida Objective: BP 121/74 Pulse 75 Ht 5' 6 (1.68m) Wt 135 lb 11.2 oz (61.6kg) BMI 21.91 kg/(m2). Bioelectrical Impedance Analysis Results by [employer] Recent Results from: 05/20/18 at 9:45 AM BMI: 21.9 kg/m? General Test Result Range Phase Angle (PA) 4.7 Min: 6.8 Mean: 7.6 Max: 8.4 Basal Metabolic Rate (BMR) 1369 Min: 1282.5 Mean: 1457 Max: 1631.5 Fat AND Fat Free Mass Test Result Range Fat (lbs) 47.6 Min: 38.8 Mean: 64.6 Max: 90.4 Fat % 35.1 Min: 31.2 Mean: 38 Max: 44.8 Fat Free Mass (FFM) lbs 88.1 Min: 84.3 Mean: 100.1 Max: 115.9 Total Body Water Test Result Range TBW (lbs) 63.5 Min: 62.6 Mean: 74.5 Max: 86.4 TBW % of FFM 72.1 Min: 73.2 Mean: 74.5 Max: 75.8 Intracellular Water Test Result Range ICW (lbs) 32.7 Min: 34.6 Mean: 39.5 Max: 44.4 ICW % of FFM 37.1 Min: 38.1 Mean: 39.6 Max: 41.1 Extracellular Water Test Result Range ECW (lbs) 30.7 Min: 28 Mean: 35.1 Max: 42.2 ECW % of FFM 34.8 Min: 33.3 Mean: 34.9 Max: 36.5 PHYSICAL EXAM: Skull: Oval Hair Distribution: Normal FACE Eyebrows: Normal Lips/Chin: Normal Color: Normal Texture: Normal EYES/PERIORBITAL EXAM Eyelids: Normal Conjunctiva: Normal Lens: Normal Iris: Normal Pupils: Normal Movements: Normal Sinus Tenderness: None MOUTH Jaw Movement: Symmetric (No Pain) Lips: Normal Soft Palate, Hard Palate, Tonsils, Pillars: Normal Tongue: Normal Gums: Normal Buccal Mucosa: Normal Teeth: Healthy - No Restorations Chew/Swallow: Normal swallowing NECK Symmetry: Symetrical Midline Trachea: Symetrical Musculature Tender: None Glands Salivary: Normal Size: Normal Normal Swallow: Normal HEART: RRR without murmur, gallop, or rubs. No ectopy. LUNGS: Lungs clear to auscultation. No wheezing or ronchi. ABDOMEN: Normal abdominal exam, Abdomen soft, non-tender. Bowel sounds normal. No masses, organomegaly NEURO: Gait normal. Reflexes normal and symmetric. Sensation grossly intact., Cranial nerves II-XII intact SKIN Temperature Hands: normal Temperature Feet: normal Texture of Skin: Normal Color: Normal Hydration: Normal Periorifice: Normal Lesions: None EXTREMITIES Nails: vertical ridging Peripheral Sensation: Normal Muscle Strength: Normal Muscle Symmetry: Normal Assessment Assessment: M79.673 Pain of foot, unspecified laterality (primary encounter diagnosis) M25.531, M25.532 Pain in both wrists G89.29 Other chronic pain Initial Functional Medicine Assessment Underlying Causes: stress Today's Focus: gut healing Nutritional Assessment Low carb, avoiding gluten Digestive Function Constipation, Bloating Inflammation/Immune Function Stuffy nose, hay fever , Energy Production/Function: Chronic pain, Migraines/Headaches Detoxification Function Mercury/Amalgams previous, Chemical sensitivity Hormonal Function: Mood swings, anxiety Structural Function: Musculoskeletal pain Plan and Lifestyle Prescription Plan/Instructions/Resources: Elimination diet Stress management Will review outside labs and functional testing, patient will send it over to us. Future Plans: GI effects Follow up: Please schedule a follow up visit with the following Caregivers: Provider: 6weeks, After School Program Teacher: 4 weeks and Health Precast Concrete Ironworker: 1 weeks LIFESTYLE PRESCRIPTION Functional Nutrition: Elimination Diet Sleep: Sleep goal for most adults is a minimum of 7-9 hours nightly. Studies consistently show that less than 6 hours of sleep for even just a few nights can alter gene expression of over 700 different genes! This can lead to reduced immunity and altered hormone levels which can increase inflammation and cause weight gain, poor blood sugar regulation, memory problems and numerous other negative effects. Please make sleep a priority. Be very protective of your sleep time and find a routine that works for you. Your body (and mind) will thank you!!!! Sleep hygiene tips: Recommend no ?screen activity? at least 1 hour before bed (no TV, computer monitor, iPad, Angelic, or Smart Phone usage). Sleep in a cool, dark room. No buzzing or binging objects in your bedroom except alarm clock. Try to get 7-8 hours of sleep per night. Exercise Prescription: Numerous studies confirm the benefits of regular moderate aerobic exercise (walking, swimming, elliptical machine, cycling, etc.) for 30 min 5 days per week (150 min goal). Resistance training for 20 min twice weekly will also help build lean muscle mass, maintain bone mineral density, reduce body fat, and increase metabolic rate (helps you to burn calories more efficiently--even at rest). High intensity interval training-Alternatively, some new research suggest very short, intense bursts of activity for just 4 minutes per day 3-4 times/week may be as effective (or even beter) than longer, low to moderate exercise sessions. If this appeals to you, please try the following: Do 1 exercise such as jumping rope, running in place, Burpees or jump squats for 30-60 seconds as hard as you can. Use a timer to ensure you're at maximal intensity for the full minute. Do this for 60 seconds 4 separate times throughout the day. Alternate days that you do this taking a day off in between. Max 3-4 times a week. If you can go longer than 60 seconds you are not going hard enough! If you choose to do the 4 bursts consecutively you must do something less strenuous (to allow the muscles time to recover) for 4 minutes before you repeat the next 60 second burst. If you cannot complete the next set of 60 seconds then you did not wait long enough for your muscle to recover. However, there is a benefit to dividing the 4 minutes bursts throughout the day vs. all at once. Stress Management: 1) Please look into this Heart Rate Variability BioFeedback Tool (www.heartmath.org). You can see the research that has been put into this very valuable tool under the Resources and Research tabs. This can be used as an juan on your smart phone. You will need to buy a sensor that plugs right into the phone for about $100. First, get one of the Heart Math booklets off [employer] that fits your 'go to' emotion - Transforming Anger, Anxiety, Stress, Depression, or PTSD. Five minutes 3X a day is more effective than 15 minutes in one sitting. 2) A regular, daily meditation practice of at least 15-20 minutes will change your brain--as well as your genes! Preliminary studies demonstrate gene expression is modified in those who meditate regularly leading to down-regulation of pro-inflammatory genes. This results in reduced inflammation, as well as improvements in the body's response to stress via the hormone cortisol, in the intervention groups vs. the controls. Although more research is needed, these findings suggest a definite role for meditation in the treatment and prevention of chronic inflammatory conditions. Behavioral Health Therapist: I recommend that you schedule an individual appointment with our [facility] Behavioral Health Therapist , ZAC Carcamo, after your visit today. Health Coaching: Please consider scheduling with our [facility] health coaches for a phone or virtual visit for accountability, goal setting and help with behavior private branch exchange repairer the next 6-8 weeks to be successful with your goals. [phone]. Smart phone apps to begin a meditative practice: Headspace (free for first 10 days) Insight Meditation Timer- (Free)-Great all-around juan to use for guided meditations of many different types and lengths or just to use as a tool to time and track your meditation practice. This is my absolute favorite! Calm- (Free) Walking Meditations-($1.99)- Get your walk AND meditation done together. A good way to start out for individuals who feel they just can't sit still to begin a meditative practice. Medications/Supplements Recommended: Medication orders placed this encounter Cortisol Diver'S Tender 90 ct. ([employer]) Stress, blood sugar, thyroid/hormones/adrenals/sleep/energy/anxiety Sig: Take 1 in AM and 1 before bed Refill: 0 fexofenadine/pseudoephedrine (KYM-D 12 HOUR ORAL) Sig: Take by mouth. Magnesium Glycinate 120mg 3 at night Stress, blood sugar, thyroid/hormones/adrenals/sleep/energy/toxins/muscles/constipation/asthma Sig: Work up to 3 capsules with meals at night - can cause loose stools Refill: 0 Meriva-SR (Lovely) Sig: Take 2 capsules by mouth twice daily. OmegaGenics EPA-DHA 2325 Liquid 2800mg/tsp (High Concentrate EPA/DHA liquid) ([employer]) - fish oil Sig: Take one teaspoon (5 ml) daily with food Refill: [address] TherBiotic Complete [address] (Klaire/Prothera) Sig: Take 1 capsule by mouth once daily. Vitamin D3 5000 U (Pure Encapsulations) Sig: Take 1 capsule by mouth daily with food. I recommend the supplements from the [facility] Epic! Living Store at [email or web address] [email or web address] as we have thoroughly evaluated the research and use only highest quality supplements. During the next 6-8 weeks you'll be working on your diet plan discussed with our mysql developer, allowing for gentle detoxification and decreasing inflammation - while we are gathering your lab results and combining those with your complete history to formulate a very personalized treatment plan. LAB results: Due to the complexity of the testing performed, we are not able to review labs via [employer] or over the phone, but please know, if any of your labs are critical we will contact you. Otherwise, we will review all your labs at your next visit. We will go over a lot of information during your follow up visit - so please be well-rested and you may want to bring someone with you, if possible. Also make sure to schedule with the mysql developer (this will not happen automatically). Potential future labs: Any [employer] labs ordered take about 4 weeks to return. Do them as soon as possible so that we have the results before your next appointment. You can access them on the [employer] website and it can be beneficial if you review them prior to your next visit. [email or web address]. Read about NutrEval if this was ordered. Time spend with patient: I spent 60 minutes in the visit, with more than 50% of the time spent counseling in regards to above . MD Manuel Wahl 05/20/2018 11:08 AM Signed Bioelectrical Impedance Analysis Results by [employer]. Recent Results from: 05/20/18 at 9:45 AM BMI: 21.9 kg/m? General Test Result Range Phase Angle (PA) 4.7 Min: 6.8 Mean: 7.6 Max: 8.4 Basal Metabolic Rate (BMR) 1369 Min: 1282.5 Mean: 1457 Max: 1631.5 Fat AND Fat Free Mass Test Result Range Fat (lbs) 47.6 Min: 38.8 Mean: 64.6 Max: 90.4 Fat % 35.1 Min: 31.2 Mean: 38 Max: 44.8 Fat Free Mass (FFM) lbs 88.1 Min: 84.3 Mean: 100.1 Max: 115.9 Total Body Water Test Result Range TBW (lbs) 63.5 Min: 62.6 Mean: 74.5 Max: 86.4 TBW % of FFM 72.1 Min: 73.2 Mean: 74.5 Max: 75.8 Intracellular Water Test Result Range ICW (lbs) 32.7 Min: 34.6 Mean: 39.5 Max: 44.4 ICW % of FFM 37.1 Min: 38.1 Mean: 39.6 Max: 41.1 Extracellular Water Test Result Range ECW (lbs) 30.7 Min: 28 Mean: 35.1 Max: 42.2 ECW % of FFM 34.8 Min: 33.3 Mean: 34.9 Max: 36.5 MSQ Initial Blood pressure 121/74, pulse 75, height 167.6 cm (5' 6), weight 61.6 kg (135 lb 11.2 oz). Clock Test Completed? : No MoCA (Den Cognitive Assessment) Test Completed? No Folstein Test Completed?: No AMB ROOMING INTAKE FLOWSHEET DATA Risk Screening Do you have concerns about personal safety or safety in the home?: No Manuel Haskins MD 05/20/2018 10:51 AM Signed Plan and Lifestyle Prescription Plan/Instructions/Resources: Elimination diet Stress management Future Plans: GI effects Follow up: Please schedule a follow up visit with the following Caregivers: Provider: 6weeks, After School Program Teacher: 4 weeks and Health [employer] Concrete Ironworker: 1 weeks LIFESTYLE PRESCRIPTION Functional Nutrition: Elimination Diet Sleep: Sleep goal for most adults is a minimum of 7-9 hours nightly. Studies consistently show that less than 6 hours of sleep for even just a few nights can alter gene expression of over 700 different genes! This can lead to reduced immunity and altered hormone levels which can increase inflammation and cause weight gain, poor blood sugar regulation, memory problems and numerous other negative effects. Please make sleep a priority. Be very protective of your sleep time and find a routine that works for you. Your body (and mind) will thank you!!!! Sleep hygiene tips: Recommend no ?screen activity? at least 1 hour before bed (no TV, computer monitor, iPad, Angelic, or Smart Phone usage). Sleep in a cool, dark room. No buzzing or binging objects in your bedroom except alarm clock. Try to get 7-8 hours of sleep per night. Exercise Prescription: Numerous studies confirm the benefits of regular moderate aerobic exercise (walking, swimming, elliptical machine, cycling, etc.) for 30 min 5 days per week (150 min goal). Resistance training for 20 min twice weekly will also help build lean muscle mass, maintain bone mineral density, reduce body fat, and increase metabolic rate (helps you to burn calories more efficiently--even at rest). High intensity interval training-Alternatively, some new research suggest very short, intense bursts of activity for just 4 minutes per day 3-4 times/week may be as effective (or even beter) than longer, low to moderate exercise sessions. If this appeals to you, please try the following: Do 1 exercise such as jumping rope, running in place, Burpees or jump squats for 30-60 seconds as hard as you can. Use a timer to ensure you're at maximal intensity for the full minute. Do this for 60 seconds 4 separate times throughout the day. Alternate days that you do this taking a day off in between. Max 3-4 times a week. If you can go longer than 60 seconds you are not going hard enough! If you choose to do the 4 bursts consecutively you must do something less strenuous (to allow the muscles time to recover) for 4 minutes before you repeat the next 60 second burst. If you cannot complete the next set of 60 seconds then you did not wait long enough for your muscle to recover. However, there is a benefit to dividing the 4 minutes bursts throughout the day vs. all at once. Stress Management: 1) Please look into this Heart Rate Variability BioFeedback Tool (www.heartmath.org). You can see the research that has been put into this very valuable tool under the Resources and Research tabs. This can be used as an juan on your smart phone. You will need to buy a sensor that plugs right into the phone for about $100. First, get one of the Heart Math booklets off [employer] that fits your 'go to' emotion - Transforming Anger, Anxiety, Stress, Depression, or PTSD. Five minutes 3X a day is more effective than 15 minutes in one sitting. 2) A regular, daily meditation practice of at least 15-20 minutes will change your brain--as well as your genes! Preliminary studies demonstrate gene expression is modified in those who meditate regularly leading to down-regulation of pro-inflammatory genes. This results in reduced inflammation, as well as improvements in the body's response to stress via the hormone cortisol, in the intervention groups vs. the controls. Although more research is needed, these findings suggest a definite role for meditation in the treatment and prevention of chronic inflammatory conditions. Behavioral Health Therapist: I recommend that you schedule an individual appointment with our [facility] Behavioral Health Therapist , ZAC Carcamo, after your visit today. Health Coaching: Please consider scheduling with our [facility] health coaches for a phone or virtual visit for accountability, goal setting and help with behavior private branch exchange repairer the next 6-8 weeks to be successful with your goals. [phone]. Smart phone apps to begin a meditative practice: Headspace (free for first 10 days) Insight Meditation Timer- (Free)-Great all-around juan to use for guided meditations of many different types and lengths or just to use as a tool to time and track your meditation practice. This is my absolute favorite! Calm- (Free) Walking Meditations-($1.99)- Get your walk AND meditation done together. A good way to start out for individuals who feel they just can't sit still to begin a meditative practice. Medications/Supplements Recommended: Medication orders placed this encounter Cortisol Diver'S Tender 90 ct. ([employer]) Stress, blood sugar, thyroid/hormones/adrenals/sleep/energy/anxiety Sig: Take 1 in AM and 1 before bed Refill: 0 fexofenadine/pseudoephedrine (KYM-D 12 HOUR ORAL) Sig: Take by mouth. Magnesium Glycinate 120mg 3 at night Stress, blood sugar, thyroid/hormones/adrenals/sleep/energy/toxins/muscles/constipation/asthma Sig: Work up to 3 capsules with meals at night - can cause loose stools Refill: 0 Meriva-SR (Lovely) Sig: Take 2 capsules by mouth twice daily. OmegaGenics EPA-DHA 2325 Liquid 2800mg/tsp (High Concentrate EPA/DHA liquid) ([employer]) - fish oil Sig: Take one teaspoon (5 ml) daily with food Refill: [address] TherBiotic Complete [address] (Klaire/Prothera) Sig: Take 1 capsule by mouth once daily. Vitamin D3 5000 U (Pure Encapsulations) Sig: Take 1 capsule by mouth daily with food. I recommend the supplements from the [facility] Epic! Living Store at [email or web address] as we have thoroughly evaluated the research and use only highest quality supplements. During the next 6-8 weeks you'll be working on your diet plan discussed with our mysql developer, allowing for gentle detoxification and decreasing inflammation - while we are gathering your lab results and combining those with your complete history to formulate a very personalized treatment plan. LAB results: Due to the complexity of the testing performed, we are not able to review labs via [employer] or over the phone, but please know, if any of your labs are critical we will contact you. Otherwise, we will review all your labs at your next visit. We will go over a lot of information during your follow up visit - so please be well-rested and you may want to bring someone with you, if possible. Also make sure to schedule with the mysql developer (this will not happen automatically). Potential future labs: Any [facility] labs ordered take about 4 weeks to return. Do them as soon as possible so that we have the results before your next appointment. You can access them on the [employer] website and it can be beneficial if you review them prior to your next visit. [email or web address]. Read about NutrEval if this was ordered. Referring Provider: MARGIE YADAV [[id number]] Allergies As of Date: 05/20/2018 Noted Allergy Reaction SEASONAL ALLERGIES 05/20/2018 14 - Other: See Comments Comments: Runny eyes and nose Date Reviewed: 05/20/2018 Reviewed by: Manuel Brennan - Fully Assessed Reason for Visit: New Patient [172] Primary Visit Diagnosis:Pain of foot, unspecified laterality [M79.673] Other Visit Diagnoses:Pain in both wrists [M25.531, M25.532] Other chronic pain [G89.29] Order(s):Cortisol Diver'S Tender 90 ct. ([employer]) Stress, blood sugar, thyroid/hormones/adrenals/sleep/energy/anxietyTake 1 in AM and 1 before bedDisp: Rfl: 0 Magnesium Glycinate 120mg 3 at night Stress, blood sugar, thyroid/hormones/adrenals/sleep/energy/toxins/muscles/constipation/ast- hmaWork up to 3 capsules with meals at night - can cause loose stoolsDisp: Rfl: 0 Meriva-SR (Lovely)Take 2 capsules by mouth twice daily.Disp: Rfl: OmegaGenics EPA-DHA 2325 Liquid 2800mg/tsp (High Concentrate EPA/DHA liquid) ([employer]) - fish oilTake one teaspoon (5 ml) daily with foodDisp: Rfl: 0 TherBiotic Complete [address] (Klaire/Prothera)Take 1 capsule by mouth once daily.Disp: Rfl: Vitamin D3 5000 U (Pure Encapsulations)Take 1 capsule by mouth daily with food.Disp: Rfl: Prescriptions as of 05/20/2018 Sig: KYM-D 12 HOUR ORAL Take by mouth. MELOXICAM ORAL Take by mouth. OTC NUTRITIONAL SUPPLEMENT Take 1 in AM and 1 before bed OTC NUTRITIONAL SUPPLEMENT Work up to 3 capsules with me* OTC NUTRITIONAL SUPPLEMENT Take 2 capsules by mouth twic* OTC NUTRITIONAL SUPPLEMENT Take one teaspoon (5 ml) opal* OTC NUTRITIONAL SUPPLEMENT Take 1 capsule by mouth once * OTC NUTRITIONAL SUPPLEMENT Take 1 capsule by mouth daily* Problem List As Of Date 05/20/2018 Noted Resolved Sebaceous Cyst [L72.3] INVALID FOR* Wrist Pain [M25.539] INVALID FOR* Lupus [L93.0] INVALID FOR*06/27/2010 Cuboid fracture [S92.213A] INVALID FOR* Cyst INVALID FOR* Sprain and strain of unspecified site of foot [*INVALID FOR* NORMA positive [R76.8] INVALID FOR* Joint pain [M25.50] INVALID FOR* Foot pain [M79.673] INVALID FOR* Hand weakness [R29.898] INVALID FOR* Other instructions from your clinician: Plan and Lifestyle Prescription Plan/Instructions/Resources: Elimination diet Stress management Future Plans: GI effects Follow up: Please schedule a follow up visit with the following Caregivers: Provider: 6weeks, After School Program Teacher: 4 weeks and Health [employer] Con[employer] Ironworker: 1 weeks LIFESTYLE PRESCRIPTION Functional Nutrition: Elimination Diet Sleep: Sleep goal for most adults is a minimum of 7-9 hours nightly. Studies consistently show that less than 6 hours of sleep for even just a few nights can alter gene expression of over 700 different genes! This can lead to reduced immunity and altered hormone levels which can increase inflammation and cause weight gain, poor blood sugar regulation, memory problems and numerous other negative effects. Please make sleep a priority. Be very protective of your sleep time and find a routine that works for you. Your body (and mind) will thank you!!!! Sleep hygiene tips: Recommend no ?screen activity? at least 1 hour before bed (no TV, computer monitor, iPad, Angelic, or Smart Phone usage). Sleep in a cool, dark room. No buzzing or binging objects in your bedroom except alarm clock. Try to get 7-8 hours of sleep per night. Exercise Prescription: Numerous studies confirm the benefits of regular moderate aerobic exercise (walking, swimming, elliptical machine, cycling, etc.) for 30 min 5 days per week (150 min goal). Resistance training for 20 min twice weekly will also help build lean muscle mass, maintain bone mineral density, reduce body fat, and increase metabolic rate (helps you to burn calories more efficiently--even at rest). High intensity interval training-Alternatively, some new research suggest very short, intense bursts of activity for just 4 minutes per day 3-4 times/week may be as effective (or even beter) than longer, low to moderate exercise sessions. If this appeals to you, please try the following: Do 1 exercise such as jumping rope, running in place, Burpees or jump squats for 30-60 seconds as hard as you can. Use a timer to ensure you're at maximal intensity for the full minute. Do this for 60 seconds 4 separate times throughout the day. Alternate days that you do this taking a day off in between. Max 3-4 times a week. If you can go longer than 60 seconds you are not going hard enough! If you choose to do the 4 bursts consecutively you must do something less strenuous (to allow the muscles time to recover) for 4 minutes before you repeat the next 60 second burst. If you cannot complete the next set of 60 seconds then you did not wait long enough for your muscle to recover. However, there is a benefit to dividing the 4 minutes bursts throughout the day vs. all at once. Stress Management: 1) Please look into this Heart Rate Variability BioFeedback Tool (www.heartmath.org). You can see the research that has been put into this very valuable tool under the Resources and Research tabs. This can be used as an juan on your smart phone. You will need to buy a sensor that plugs right into the phone for about $100. First, get one of the Heart Math booklets off [employer] that fits your 'go to' emotion - Transforming Anger, Anxiety, Stress, Depression, or PTSD. Five minutes 3X a day is more effective than 15 minutes in one sitting. 2) A regular, daily meditation practice of at least 15- 20 minutes will change your brain--as well as your genes! Preliminary studies demonstrate gene expression is modified in those who meditate regularly leading to down-regulation of pro-inflammatory genes. This results in reduced inflammation, as well as improvements in the body's response to stress via the hormone cortisol, in the intervention groups vs. the controls. Although more research is needed, these findings suggest a definite role for meditation in the treatment and prevention of chronic inflammatory conditions. Behavioral Health Therapist: I recommend that you schedule an individual appointment with our [facility] Behavioral Health Therapist , ZAC Carcamo, after your visit today. Health Coaching: Please consider scheduling with our [facility] health coaches for a phone or virtual visit for accountability, goal setting and help with behavior private branch exchange repairer the next 6-8 weeks to be successful with your goals. [phone]. Smart phone apps to begin a meditative practice: Headspace (free for first 10 days) Insight Meditation Timer- (Free)-Great all-around juan to use for guided meditations of many different types and lengths or just to use as a tool to time and track your meditation practice. This is my absolute favorite! Calm- (Free) Walking Meditations-($1.99)- Get your walk AND meditation done together. A good way to start out for individuals who feel they just can't sit still to begin a meditative practice. Medications/Supplements Recommended: Medication orders placed this encounter Cortisol Diver'S Tender 90 ct. ([employer]) Stress, blood sugar, thyroid/hormones/adrenals/sleep/energy/anxiety Sig: Take 1 in AM and 1 before bed Refill: 0 fexofenadine/pseudoephedrine (KYM-D 12 HOUR ORAL) Sig: Take by mouth. Magnesium Glycinate 120mg 3 at night Stress, blood sugar, thyroid/hormones/adrenals/sleep/energy/toxins/muscles/constipation/asthma Sig: Work up to 3 capsules with meals at night - can cause loose stools Refill: 0 Meriva-SR (Lovely) Sig: Take 2 capsules by mouth twice daily. OmegaGenics EPA-DHA 2325 Liquid 2800mg/tsp (High Concentrate EPA/DHA liquid) ([employer]) - fish oil Sig: Take one teaspoon (5 ml) daily with food Refill: [address] TherBiotic Complete [address] (Klaire/Prothera) Sig: Take 1 capsule by mouth once daily. Vitamin D3 5000 U (Pure Encapsulations) Sig: Take 1 capsule by mouth daily with food. I recommend the supplements from the [facility] Healthy Living Store at [email or web address]://[email or web address] [email or web address] as we have thoroughly evaluated the research and use only highest quality supplements. During the next 6-8 weeks you'll be working on your diet plan discussed with our mysql developer, allowing for gentle detoxification and decreasing inflammation - while we are gathering your lab results and combining those with your complete history to formulate a very personalized treatment plan. LAB results: Due to the complexity of the testing performed, we are not able to review labs via [employer] or over the phone, but please know, if any of your labs are critical we will contact you. Otherwise, we will review all your labs at your next visit. We will go over a lot of information during your follow up visit - so please be well-rested and you may want to bring someone with you, if possible. Also make sure to schedule with the mysql developer (this will not happen automatically). Potential future labs: Any [facility] labs ordered take about 4 weeks to return. Do them as soon as possible so that we have the results before your next appointment. You can access them on the [employer] website and it can be beneficial if you review them prior to your next visit. [email or web address].[email or web address]. Read about NutrEval if this was ordered. Prescriptions ordered this encounter Disp Refills Start End OTC NUTRITIONAL SUPPLEMENT 0 05/20/2018 Class: OTC Sig: Take 1 in AM and 1 before bed OTC NUTRITIONAL SUPPLEMENT 0 05/20/2018 Class: OTC Sig: Work up to 3 capsules with meals at night - can cause loose stools OTC NUTRITIONAL SUPPLEMENT 05/20/2018 Class: OTC Route: ORAL Sig: Take 2 capsules by mouth twice daily. OTC NUTRITIONAL SUPPLEMENT 0 05/20/2018 Class: OTC Sig: Take one teaspoon (5 ml) daily with food OTC NUTRITIONAL SUPPLEMENT 05/20/2018 Class: OTC Route: ORAL Sig: Take 1 capsule by mouth once daily. OTC NUTRITIONAL SUPPLEMENT 05/20/2018 Class: OTC Route: ORAL Sig: Take 1 capsule by mouth daily with food. Encounter Status:Closed by JUANCHO HASKINS on 05/20/18 PROGRESS Observed: 05/20/2018 Status: COMPLETED Source: [place] 8:49 AM [employer] [facility] [place] REPOSITORY O ID: [id number] Author: Carli García Service: (none) Author Type: Registered Dietitian Type: Progress Notes Filed: 05/20/2018 1:41 PM Note Text: [facility] Nutrition Therapy: Initial Assessment (Group) Patient Name: Bee Monteiro Class Topic: Functional Nutrition and Elimination Diet Introduction Education Materials: IFM Elimination Diet Food List, Weekly Senior Controls Technician and Recipes, Comprehensive Guide, Adaptable Meals, Dirty Dozen Chief Concerns: 1. Pain in feet and joints I would like to reduce my pain level in my joints and feet. I also have high inflammation levels that I would like to bring down to normal. MSQ Score: 20 Is the patient having any pain that is interfering with oral intake? No Past Medical History: PAST MEDICAL HISTORY Diagnosis Date - PMH - PAST MEDICAL HISTORY OF has chance of blood clots when due to a 'clotting disorder' Anthropometrics: There were no vitals taken for this visit. Height: Last 1 Encounter Ht Readings: Date: Ht: 12/12/2017 168.3 cm (5' 6.26) Current weight: Last 1 Encounter Wt Readings: Date: Wt: 12/12/2017 63.1 kg (139 lb 3.2 oz) Wt: 63.1 kg (139 lb 3.2 oz) BMI: 22.29 kg/(m2) RMR can't be calculated - Weight unrecorded in last 120 days. Lifestyle: Weight issues: Yes, weigh gain Adequate, restful sleep?: No, 7 hours with difficulty Currently exercising?: Yes, brisk walking, working with a assistive technology trainer GI symptoms:Yes, cold sores Dietary pattern: Current diet: Yes, Low Carb, No Wheat Food allergies:No Food sensitivities: Yes, Monosodium Glutamate-MSG, Artificial Sweetners, Sulfite-containing foods like wine, dried fruit, salad bars, Preservatives Reported lifestyle behaviors and eating habits: Fast eater, Love to eat Diet Recall: Yes Breakfast Biblical bread with almond butter fresh fruit with plain organic yogurt egg Lunch Large iron salad fresh veggies and hummus lean meat grapes Dinner Chicken brown rice broccoli large salad with veggies Snacks Apples, almonds, pistachios, nut thins with hummus, veggies with hummus, grapes, clementines, energy bites Fluids Water Excessive stress reported?: No 42 year old female presents for nutrition assessment relative to osteoarthritis. C/o chronic pain in feet, cold sores, intolerance to gluten. Past medical history is notable for eczema. Diet recall includes healthful variety of whole foods, includes dariy. Due to inflammatory symptoms of pain, skin problems, patient would benefit from whole foods, plant based, low glycemic food plan that minimizes potential food triggers and utilizes strategies to aid in good digestion. Provider Nutrition Notes: elimination diet Nutrition Diagnosis: Food and nutrition related knowledge deficit related to lack of prior education as evidenced by patient's verbalized inaccurate/incomplete information. Nutrition Intervention 05/20/2018: Nutrition education: 1. Whole foods, plant based, low glycemic, comprehensive elimination diet 2. Adequate hydration 3. Self-Monitoring: Track food/beverage intake 4. Schedule follow up for food reintroduction and further personalization of eating plan Nutrition Monitoring AND Evaluation: Adherence to elimination diet Criteria: Patient recall, food diary Follow up: 8 weeks Time Spent: 60 minutes Referred/Supervised by: Dr. Juancho Haskins Consult Billing Type: Group/60 minutes Number of Increments: 2 (60 minutes) Signed by: Carli García RD PROGRESS Observed: 05/20/2018 Status: COMPLETED Source: [place] 8:31 AM [facility] REPOSITORY HNO ID: [id number] Author: Juancho Haskins Service: (none) Author Type: Physician Type: Progress Notes Filed: 05/20/2018 11:08 AM Note Text: FUNCTIONAL MEDICINE INITIAL ASSESSMENT Patient: Bee Monteiro ALLERGIES Allergen Reactions - Seasonal Allergies Other: See Comments Runny eyes and nose Current Outpatient Prescriptions: fexofenadine/pseudoephedrine (KYM-D 12 HOUR ORAL) Take by mouth. Disp: Rfl: MELOXICAM ORAL Take by mouth. Disp: Rfl: Cortisol Diver'S Tender 90 ct. (Integrative [employer]rapeutics) Stress, blood sugar, thyroid/hormones/adrenals/sleep/energy/anxiety Take 1 in AM and 1 before bed Disp: Rfl: 0 Magnesium Glycinate 120mg 3 at night Stress, blood sugar, thyroid/hormones/adrenals/sleep/energy/toxins/muscles/constipation/asthma Work up to 3 capsules with meals at night - can cause loose stools Disp: Rfl: 0 Meriva-SR (Lovely) Take 2 capsules by mouth twice daily. Disp: Rfl: OmegaGenics EPA-DHA 2325 Liquid 2800mg/tsp (High Concentrate EPA/DHA liquid) (Elcelyx Therapeutics) - fish oil Take one teaspoon (5 ml) daily with food Disp: Rfl: 0 TherBiotic [address] (Klaire/Prothera) Take 1 capsule by mouth once daily. Disp: Rfl: Vitamin D3 5000 U (Pure Encapsulations) Take 1 capsule by mouth daily with food. Disp: Rfl: No current facility-administered medications for this visit. PAST MEDICAL HISTORY Diagnosis Date - PMH - PAST MEDICAL HISTORY OF has chance of blood clots when due to a 'clotting disorder' PAST SURGICAL HISTORY Procedure Laterality Date - NONE Social History Marital status: Spouse name: Years of education: Number of children: 1 Social History Main Topics Smoking status: Never Smoker Smokeless tobacco: Never Used Alcohol use: No Drug use: No Sexual activity: Yes Partners with: Male EVALUATION MSQ: 52 Patient Goals: Health Goals What do you hope to achieve in your visit with us? : I would like to reduce my pain level in my joints and feet. I also have high inflammation levels that I would like to bring down to normal. When was the last time you felt well? : One month ago when I was on prednisone Did something trigger your change in health? : Not in particular What makes you feel better? : Rest, exercise, healthy food, low stress What makes you feel worse? : Busyness, stress, bad food, lots of walking, working around my house, How does your condition affect you? : It is crippling. I can't walk when I am hurting really bad What do you think is happening and why? : I had blood work done and my inflammation levels were at a 12 and I was told normal levels are at 1-3. I have always struggled with high arches and have had to wear orthotics to walk comfortably. My feet are fighting orthotics now and they used to be the only way I got relief. What do you feel needs to happen for you to get better? : A miracle HPI: 42 year old comes here for initial visit. Always had foot pain since high school But has been getting worse since last few years. Feet, star in the arch and then involves the whole foot. Both feet, even with minimal exertion, wrist is another area which is issues, fingers will swell. More so in the joints. Saw rheumatology, testing was negative. just said take nsaids to help with pain , Taking meloxicam for 6 years which is helping, but not working as good. Sitting makes her whole body stiff and painful. Thinks it might be autoimmune Has been to electrophysiology technologist, has not been helpful. 2011 things getting worse after of second child. Recently tried prednisone and worked great. Timeline: See Living [employer] : full term, vaginal, breast fed Ear infections: several antibiotics Elementary: No problems, no further antibiotics. Middle: No problems. 12-14 years menarche , no problems HS: no problem [facility]- . 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 depression, 6 months better. 2004 moved back home, helped with mood 2008 - second child, again depression. 2010 - stress fracture in foot, and then symptoms got worse. 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 Triggers/Mediators: antibiotic Labs: none Review of Systems: See Living [facility] Objective: BP 121/74 Pulse 75 Ht 5' 6 (1.68m) Wt 135 lb 11.2 oz (61.6kg) BMI 21.91 kg/(m2). Bioelectrical Impedance Analysis Results by [employer] Recent Results from: 05/20/18 at 9:45 AM BMI: 21.9 kg/m? General Test Result Range Phase Angle (PA) 4.7 Min: 6.8 Mean: 7.6 Max: 8.4 Basal Metabolic Rate (BMR) 1369 Min: 1282.5 Mean: 1457 Max: 1631.5 Fat AND Fat Free Mass Test Result Range Fat (lbs) 47.6 Min: 38.8 Mean: 64.6 Max: 90.4 Fat % 35.1 Min: 31.2 Mean: 38 Max: 44.8 Fat Free Mass (FFM) lbs 88.1 Min: 84.3 Mean: 100.1 Max: 115.9 Total Body Water Test Result Range TBW (lbs) 63.5 Min: 62.6 Mean: 74.5 Max: 86.4 TBW % of FFM 72.1 Min: 73.2 Mean: 74.5 Max: 75.8 Intracellular Water Test Result Range ICW (lbs) 32.7 Min: 34.6 Mean: 39.5 Max: 44.4 ICW % of FFM 37.1 Min: 38.1 Mean: 39.6 Max: 41.1 Extracellular Water Test Result Range ECW (lbs) 30.7 Min: 28 Mean: 35.1 Max: 42.2 ECW % of FFM 34.8 Min: 33.3 Mean: 34.9 Max: 36.5 PHYSICAL EXAM: Skull: Oval Hair Distribution: Normal FACE Eyebrows: Normal Lips/Chin: Normal Color: Normal Texture: Normal EYES/PERIORBITAL EXAM Eyelids: Normal Conjunctiva: Normal Lens: Normal Iris: Normal Pupils: Normal Movements: Normal Sinus Tenderness: None MOUTH Jaw Movement: Symmetric (No Pain) Lips: Normal Soft Palate, Hard Palate, Tonsils, Pillars: Normal Tongue: Normal Gums: Normal Buccal Mucosa: Normal Teeth: Healthy - No Restorations Chew/Swallow: Normal swallowing NECK Symmetry: Symetrical Midline Trachea: Symetrical Musculature Tender: None Glands Salivary: Normal Size: Normal Normal Swallow: Normal HEART: RRR without murmur, gallop, or rubs. No ectopy. LUNGS: Lungs clear to auscultation. No wheezing or ronchi. ABDOMEN: Normal abdominal exam, Abdomen soft, non-tender. Bowel sounds normal. No masses, organomegaly NEURO: Gait normal. Reflexes normal and symmetric. Sensation grossly intact., Cranial nerves II-XII intact SKIN Temperature Hands: normal Temperature Feet: normal Texture of Skin: Normal Color: Normal Hydration: Normal Periorifice: Normal Lesions: None EXTREMITIES Nails: vertical ridging Peripheral Sensation: Normal Muscle Strength: Normal Muscle Symmetry: Normal Assessment Assessment: M79.673 Pain of foot, unspecified laterality (primary encounter diagnosis) M25.531, M25.532 Pain in both wrists G89.29 Other chronic pain Initial Functional Medicine Assessment Underlying Causes: stress Today's Focus: gut healing Nutritional Assessment Low carb, avoiding gluten Digestive Function Constipation, Bloating Inflammation/Immune Function Stuffy nose, hay fever , Energy Production/Function: Chronic pain, Migraines/Headaches Detoxification Function Mercury/Amalgams previous, Chemical sensitivity Hormonal Function: Mood swings, anxiety Structural Function: Musculoskeletal pain Plan and Lifestyle Prescription Plan/Instructions/Resources: Elimination diet Stress management Will review outside labs and functional testing, patient will send it over to us. Future Plans: GI effects Follow up: Please schedule a follow up visit with the following Caregivers: Provider: 6weeks, After School Program Teacher: 4 weeks and Health Precast Concrete Ironworker: 1 weeks LIFESTYLE PRESCRIPTION Functional Nutrition: Elimination Diet Sleep: Sleep goal for most adults is a minimum of 7-9 hours nightly. Studies consistently show that less than 6 hours of sleep for even just a few nights can alter gene expression of over 700 different genes! This can lead to reduced immunity and altered hormone levels which can increase inflammation and cause weight gain, poor blood sugar regulation, memory problems and numerous other negative effects. Please make sleep a priority. Be very protective of your sleep time and find a routine that works for you. Your body (and mind) will thank you!!!! Sleep hygiene tips: Recommend no ?screen activity? at least 1 hour before bed (no TV, computer monitor, iPad, Angelic, or Smart Phone usage). Sleep in a cool, dark room. No buzzing or binging objects in your bedroom except alarm clock. Try to get 7-8 hours of sleep per night. Exercise Prescription: Numerous studies confirm the benefits of regular moderate aerobic exercise (walking, swimming, elliptical machine, cycling, etc.) for 30 min 5 days per week (150 min goal). Resistance training for 20 min twice weekly will also help build lean muscle mass, maintain bone mineral density, reduce body fat, and increase metabolic rate (helps you to burn calories more efficiently--even at rest). High intensity interval training-Alternatively, some new research suggest very short, intense bursts of activity for just 4 minutes per day 3-4 times/week may be as effective (or even beter) than longer, low to moderate exercise sessions. If this appeals to you, please try the following: Do 1 exercise such as jumping rope, running in place, Burpees or jump squats for 30-60 seconds as hard as you can. Use a timer to ensure you're at maximal intensity for the full minute. Do this for 60 seconds 4 separate times throughout the day. Alternate days that you do this taking a day off in between. Max 3-4 times a week. If you can go longer than 60 seconds you are not going hard enough! If you choose to do the 4 bursts consecutively you must do something less strenuous (to allow the muscles time to recover) for 4 minutes before you repeat the next 60 second burst. If you cannot complete the next set of 60 seconds then you did not wait long enough for your muscle to recover. However, there is a benefit to dividing the 4 minutes bursts throughout the day vs. all at once. Stress Management: 1) Please look into this Heart Rate Variability BioFeedback Tool (www.heartmath.org). You can see the research that has been put into this very valuable tool under the Resources and Research tabs. This can be used as an juan on your smart phone. You will need to buy a sensor that plugs right into the phone for about $100. First, get one of the Heart Math booklets off [employer] that fits your 'go to' emotion - Transforming Anger, Anxiety, Stress, Depression, or PTSD. Five minutes 3X a day is more effective than 15 minutes in one sitting. 2) A regular, daily meditation practice of at least 15-20 minutes will change your brain--as well as your genes! Preliminary studies demonstrate gene expression is modified in those who meditate regularly leading to down-regulation of pro-inflammatory genes. This results in reduced inflammation, as well as improvements in the body's response to stress via the hormone cortisol, in the intervention groups vs. the controls. Although more research is needed, these findings suggest a definite role for meditation in the treatment and prevention of chronic inflammatory conditions. Behavioral Health Therapist: I recommend that you schedule an individual appointment with our [facility] Behavioral Health Therapist , ZAC Carcamo, after your visit today. Health Coaching: Please consider scheduling with our [facility] health coaches for a phone or virtual visit for accountability, goal setting and help with behavior private branch exchange repairer the next 6-8 weeks to be successful with your goals. [phone]. Smart phone apps to begin a meditative practice: Headspace (free for first 10 days) Insight Meditation Timer- (Free)-Great all-around juan to use for guided meditations of many different types and lengths or just to use as a tool to time and track your meditation practice. This is my absolute favorite! Calm- (Free) Walking Meditations-($1.99)- Get your walk AND meditation done together. A good way to start out for individuals who feel they just can't sit still to begin a meditative practice. Medications/Supplements Recommended: Medication orders placed this encounter Cortisol Diver'S Tender 90 ct. ([employer]ative [employer]) Stress, blood sugar, thyroid/hormones/adrenals/sleep/energy/anxiety Sig: Take 1 in AM and 1 before bed Refill: 0 fexofenadine/pseudoephedrine (KYM-D 12 HOUR ORAL) Sig: Take by mouth. Magnesium Glycinate 120mg 3 at night Stress, blood sugar, thyroid/hormones/adrenals/sleep/energy/toxins/muscles/constipation/asthma Sig: Work up to 3 capsules with meals at night - can cause loose stools Refill: 0 Meriva-SR (Lovely) Sig: Take 2 capsules by mouth twice daily. OmegaGenics EPA-DHA 2325 Liquid 2800mg/tsp (High Concentrate EPA/DHA liquid) (Elcelyx Therapeutics) - fish oil Sig: Take one teaspoon (5 ml) daily with food Refill: [address] TherBiotic Complete [address] (Klaire/Prothera) Sig: Take 1 capsule by mouth once daily. Vitamin D3 5000 U (Pure Encapsulations) Sig: Take 1 capsule by mouth daily with food. I recommend the supplements from the [facility] Epic! Living Store at https://store.[employer]/ as we have thoroughly evaluated the research and use only highest quality supplements. During the next 6-8 weeks you'll be working on your diet plan discussed with our mysql developer, allowing for gentle detoxification and decreasing inflammation - while we are gathering your lab results and combining those with your complete history to formulate a very personalized treatment plan. LAB results: Due to the complexity of the testing performed, we are not able to review labs via Messagemindhart or over the phone, but please know, if any of your labs are critical we will contact you. Otherwise, we will review all your labs at your next visit. We will go over a lot of information during your follow up visit - so please be well-rested and you may want to bring someone with you, if possible. Also make sure to schedule with the mysql developer (this will not happen automatically). Potential future labs: Any [employer] labs ordered take about 4 weeks to return. Do them as soon as possible so that we have the results before your next appointment. You can access them on the [employer] website and it can be beneficial if you review them prior to your next visit. www.[email or web address].net. Read about NutrEval if this was ordered. Time spend with patient: I spent 60 minutes in the visit, with more than 50% of the time spent counseling in regards to above . Juancho Haskins MD PAP I-G W/RFX HRHPV Collected: 04/26/2018 Status: F Source: ADRIAN 1:15 PM [facility] REPOSITORY Order Comment: CYTOLOGY INFORMATION: - CLINICAL INFORMATION: - DATE LMP/MENOPAUSE: 04/18/18 LMP - COLLECTION VIAL: Thin Prep Vial - LAD[employer]OCKER ROOM ATTENDANT SOURCE: CERVICAL/ENDOCERVICAL - COLLECTION TECHNIQUE: BRUSH/SPATULA Specimen Comment: [id number] Specimen Comment: Source.............Cervix;Endocervix Specimen Comment: LMP / Prev Treat...[id number] Specimen Comment: No. of containers..01 ThinPrep Vial TYPE CODE TESTS RESULT OUT OF RANGE REFERENCE UNITS LAB L7400.0800 . Normal DIAGN Comment Result Comment: NEGATIVE FOR INTRAEPITHELIAL LESION AND MALIGNANCY. LAB L7400.0900 . Normal ADEQ Comment Result Comment: Satisfactory for evaluation. Endocervical and/or squamous metaplastic cells (endocervical component) are present. LAB L7400.1400 . Normal PERFORM Comment Result Comment: Alia Yañez, Guest Services (ASCP) LAB L7400.2575 . Normal TEST METHOD Comment Result Comment: This liquid based ThinPrep(R) pap test was screened with the use of an image guided system. LAB L7400.2600 . Normal . COMM LAB L7400.2700 . Normal PAPSMR Comment Result Comment: The Pap smear is a screening test designed to aid in the detection of premalignant and malignant conditions of the uterine cervix. It is not a diagnostic procedure and should not be used as the sole means of detecting cervical cancer. Both false-positive and false-negative reports do occur. LAB L7400.2800 . Normal HPV RFLX Comment Result Comment: The HPV DNA reflex criteria were not met with this specimen result therefore, no HPV testing was performed. Performed at: [address] [id number] Travel Counselor: Lisy Santana MD, Phone: [phone] Performed By: #### L7400.0350 #### [facility] (refer to report for specific site) refer to report for address and phone number [id number] URU RATE Collected: 03/28/2018 Status: F Source: ADRIAN 12:24 PM [facility] REPOSITORY Order Comment: Order Date: 03/28/18 Order Info: 27209-2 - SED TYPE CODE TESTS RESULT OUT OF RANGE REFERENCE UNITS LAB L102.0000 0-20 mm/hr Normal SED RATE 19 Performed By: #### L101.9900, L500.2500 #### [facility] [address] [place], [place], [address] BASIC METABOLIC Collected: 03/28/2018 Status: F Source: ADRIAN PROFILE (BMP) 12:24 PM [facility] REPOSITORY Order Comment: Order Date: 03/28/18 Order Info: 0667-1 - BMP TYPE CODE TESTS RESULT OUT OF RANGE REFERENCE UNITS LAB L501.0100 74-106 mg/dL Normal GLU 74 Result Comment: Please note revised GLUCOSE reference range effective 2017. LAB L501.1000 7-18 mg/dL Normal BUN 13 LAB L501.1100 0.55-1.02 mg/dL Low CREAT,SERUM 0.53 Result Comment: The validity of the calculated GFR AND GFRAA in patients over 70 years has not been determined. Clinical correlation is essential. LAB L501.1110 >60 mL/min Normal EST GFR 135 Result Comment: Non- GFR Calc LAB L501.1115 >60 mL/min Normal EST GFR - AA 164 Result Comment: GFR Calc LAB L501.1300 10-20 RATIO High BUN/CRE 24.6 LAB L501.2200 8.5-10.1 mg/dL CA Normal 9.0 LAB L501.5300 136-145 mmol/L NA Normal 139 LAB L501.5600 3.5-5.1 mmol/L K Normal 3.8 LAB L501.5900 98-107 mmol/L CL Normal 105 LAB L501.6100 21.0-32.0 mmol/L Normal CO2 26.0 LAB L501.6200 5-15 Normal GAP 8 Performed By: #### L101.9900, L500.2500 #### [facility] [address] [place], [address] CRP Collected: 03/28/2018 Status: F Source: ADRIAN 12:24 PM [facility] REPOSITORY Order Comment: Order Date: 03/28/18 Order Info: 0667-1 - BMP TYPE CODE TESTS RESULT OUT OF RANGE REFERENCE UNITS LAB L501.6710 0.0-3.0 mg/L High 12.10 C-REACTIVE PROT Result Comment: C-Reactive Protein (CRP) provides useful information for the diagnosis, therapy and monitoring of inflammatory processes and associated diseases. For the evaluation of Relative Risk for Cardiovascular Disease, a High Sensitivity CRP (HSCRP) should be ordered. Performed By: #### L501.6710 #### [facility] [address] 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 Had trial of FSM last month which lasted 3 weeks until orthotics were adjusted. Pain now in arch of foot. Was able to walk barefoot for 2 weeks after FSM treatment. Has appt with chiropractor next week. Does not want to take medication. Physical Exam: Alert, active, in no distress Head: Normocephalic and atraumatic HEENT: Pupils equal and reactive to light, extraocular muscles intact. Tympanic membranes pink and moist with good landmarks. Pharynx pink and moist without exudates or erosions Neck: no adenopathy Lungs: Clear to auscultation with good air exchange. No grunting flaring or retractions Heart: Regular rate and rhythm with normal s1 S2 femoral pulses present Abdomen: Soft, nontender with good bowel sounds in all 4 quadrants. no hepatosplenomegaly Extremities: well perfused. Capillary refill less than 3 seconds Plantar surface of feet with tenderness to palpation over arch of foot. Trigger bands present on arch of feet and behind knees. Trigger bands released FSM from neck to feet at 150 microamperes for autoimmune reboot, fracture> 6 weeks, fracture > 6 weeks and RB Patient tolerated well. Assess: plantar fasciitis Plan; follow up in 4 weeks. Call with update in 2 weeks. If improving will request [facility] to prior authorize additional treatments Yanira Draper DO CNOV Observed: 12/12/2017 Status: COMPLETED Source: LYLE 11:00 AM [facility] REPOSITORY Office Visit ([facility]) BEE MONTEIRO ([id number]) 1975 F Date Time Provider Department 12/12/17 11:00 AM YANIRA DRAPER [facility] During your visit today, we recorded the following information about you: Temperature Pulse Blood pressure Weight 98.8 degrees 81/minute 106/72 63.1 kg Height 1.683 m Charisma Brady MA 12/12/2017 11:07 AM Signed Patient presents with: Established Patient: microcurrent Yanira Logan MA 12/12/2017 12:43 PM Signed 42 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 Had trial of FSM last month which lasted 3 weeks until orthotics were adjusted. Pain now in arch of foot. Was able to walk barefoot for 2 weeks after FSM treatment. Has appt with chiropractor next week. Does not want to take medication. Physical Exam: Alert, active, in no distress Head: Normocephalic and atraumatic HEENT: Pupils equal and reactive to light, extraocular muscles intact. Tympanic membranes pink and moist with good landmarks. Pharynx pink and moist without exudates or erosions Neck: no adenopathy Lungs: Clear to auscultation with good air exchange. No grunting flaring or retractions Heart: Regular rate and rhythm with normal s1 S2 femoral pulses present Abdomen: Soft, nontender with good bowel sounds in all 4 quadrants. no hepatosplenomegaly Extremities: well perfused. Capillary refill less than 3 seconds Plantar surface of feet with tenderness to palpation over arch of foot. Trigger bands present on arch of feet and behind knees. Trigger bands released FSM from neck to feet at 150 microamperes for autoimmune reboot, fracture> 6 weeks, fracture > 6 weeks and RB Patient tolerated well. Assess: plantar fasciitis Plan; follow up in 4 weeks. Call with update in 2 weeks. If improving will request [facility] to prior authorize additional treatments Yanira Draper DO Referring Provider: YANIRA DRAPER [[id number]] Allergies As of Date: 12/12/2017 (No Known Allergies) Date Reviewed: 12/12/2017 Reviewed by: Yanira Draper - Fully Assessed Reason for Visit: Established Patient [175] Cmt: microcurrent Primary Visit Diagnosis:Plantar fasciitis, bilateral [M72.2] Other Visit Diagnosis:Pain in both wrists [M25.531, M25.532] Prescriptions as of 12/12/2017 Sig: MELOXICAM ORAL Take by mouth. Problem List As Of Date 12/12/2017 Noted Resolved Sebaceous Cyst [L72.3] INVALID FOR* Wrist Pain [M25.539] INVALID FOR* Lupus [L93.0] INVALID FOR*06/27/2010 Cuboid fracture [S92.213A] INVALID FOR* Cyst INVALID FOR* Sprain and strain of unspecified site of foot [*INVALID FOR* NORMA positive [R76.8] INVALID FOR* Joint pain [M25.50] INVALID FOR* Foot pain [M79.673] INVALID FOR* Hand weakness [R29.898] INVALID FOR* Visit Notes: >> Charisma Brady MA December 12, 2017 11:06 AM Status: Signed Patient presents with: Established Patient: microcurrent Charisma Brady MA Encounter Status:Closed by YANIRA DR[facility]ER DO [facility] Observ[facility]: 11/13/2017 Status: COMPLETED Source: LYLE 12:00 AM [facility] REPOSITORY Telephone ([facility]) BEE MONTEIRO ([id number]) 1975 F Date Time Provider Department 11/13/17 YANIRA DRAPER [facility] During your visit today, we recorded the following information about you: Kayla Joiner, [facility], [facility] 11/13/2017 4:09 PM Signed Patient's insurance is requesting a treatment plan validating its medical necessary for the patient to received micro currents for her arthritis and plantar fascitis . Please fax the treatment plan to [facility] with her [id number] And her insurance on the plan to fax [phone] Yanira Draper DO 11/19/2017 8:34 AM Signed Letter written. Please fax DO Cindy Benitez RN 11/19/2017 8:49 AM Signed Letter faxed successfully to pt's insurance. Encounter closed. Arleth Phuc Psr 11/22/2017 9:11 AM Signed Patient phones stating insurance has not received letter and is asking it to be faxed again to [phone]. Denisa Padilla RN 11/22/2017 12:32 PM Signed Refaxed with confirmation to Allergies As of Date: 11/13/2017 (No Known Allergies) Date Reviewed: 11/05/2017 Reviewed by: Yanira Draper - Fully Assessed Reason for Visit: Treatment Planning [881] Prescriptions as of 11/13/2017 Sig: MELOXICAM ORAL Take by mouth. Problem List As Of Date 11/13/2017 Noted Resolved Sebaceous Cyst [L72.3] INVALID FOR* Wrist Pain [M25.539] INVALID FOR* Lupus [L93.0] INVALID FOR*06/27/2010 Cuboid fracture [S92.213A] INVALID FOR* Cyst INVALID FOR* Sprain and strain of unspecified site of foot [*INVALID FOR* NORMA positive [R76.8] INVALID FOR* Joint pain [M25.50] INVALID FOR* Foot pain [M79.673] INVALID FOR* Hand weakness [R29.898] INVALID FOR* Letter Text Bee Monteiro Yanira Draper D.O. [address] [place] [address] November 19, 2017 [id number] To Whom it May Concern: Bee Monteiro was seen in my office 11/05/2017 for frequency specific microcurrent therapy. This therapy is FDA approved to treat chronic pain for musculoskeletal problems such as Plantar Fasciitis, and I have had much success treating this condition. Please authorize Ms. Monteiro to have frequency specific microcurrent therapy ( 21287 is CPT code). Sincerely yours, Yanira Draper D.O. (Electronically signed to expedite mailing) Encounter Status:Closed by CINDY MISTRY RN on 11/19/17 PROGRESS Observed: 11/05/2017 Status: COMPLETED Source: [place]YLE 2:40 PM [facility] REPOSITORY HNO ID: [id number] Author: Yanira Draper Service: (none) Author Type: Physician Type: Progress Notes Filed: 11/05/2017 2:55 PM Note Text: 42 year old female here with complaints of plantar fasciitis since late teens due to high arches, arthritis in joints. Takes Meloxicam daily with improvement in symptoms. No headache. No known injury. Wears shoe orthotics due to high arches. Has friend who does frequency specific microcurrent, and patient wanted more information on it.. .Physical Exam: Alert, active, in no distress Head: Normocephalic and atraumatic Neck: no adenopathy Lungs: Clear to auscultation with good air exchange. No grunting flaring or retractions Heart: Regular rate and rhythm with normal s1 S2 femoral pulses present Abdomen: Soft, nontender with good bowel sounds in all 4 quadrants. no hepatosplenomegaly Extremities: well perfused. Capillary refill less than 3 seconds Bilateral plantar tenderness over medial arches. Assess: bilateral plantar fasciitis Plan: discussed FSM treatment. Await insurance authorization. Yanira Draper DO CNOV Observed: 11/05/2017 Status: COMPLETED Source: LYLE 1:00 PM [facility] REPOSITORY Office Visit ([facility]) BEE MONTEIRO ([id number]) 1975 F Date Time Provider Department 11/05/17 1:00 PM YANIRA DRAPER [facility] During your visit today, we recorded the following information about you: Pulse Respiration Blood pressure 76/minute 16/minute 114/72 Yanira Draper DO 11/05/2017 2:55 PM Signed 42 year old female here with complaints of plantar fasciitis since late teens due to high arches, arthritis in joints. Takes Meloxicam daily with improvement in symptoms. No headache. No known injury. Wears shoe orthotics due to high arches. Has friend who does frequency specific microcurrent, and patient wanted more information on it.. .Physical Exam: Alert, active, in no distress Head: Normocephalic and atraumatic Neck: no adenopathy Lungs: Clear to auscultation with good air exchange. No grunting flaring or retractions Heart: Regular rate and rhythm with normal s1 S2 femoral pulses present Abdomen: Soft, nontender with good bowel sounds in all 4 quadrants. no hepatosplenomegaly Extremities: well perfused. Capillary refill less than 3 seconds Bilateral plantar tenderness over medial arches. Assess: bilateral plantar fasciitis Plan: discussed FSM treatment. Await insurance authorization. Yanira Draper DO Referring Provider: YANIRA DRAPER [[id number]] Allergies As of Date: 11/05/2017 (No Known Allergies) Date Reviewed: 11/05/2017 Reviewed by: Yanira Draper - Fully Assessed Reason for Visit: Microcurrent [Other] Primary Visit Diagnosis:Plantar fasciitis, bilateral [M72.2] Prescriptions as of 11/05/2017 Sig: MELOXICAM ORAL Take by mouth. Problem List As Of Date 11/05/2017 Noted Resolved Sebaceous Cyst [L72.3] INVALID FOR* Wrist Pain [M25.539] INVALID FOR* Lupus [L93.0] INVALID FOR*06/27/2010 Cuboid fracture [S92.213A] INVALID FOR* Cyst INVALID FOR* Sprain and strain of unspecified site of foot [*INVALID FOR* NORMA positive [R76.8] INVALID FOR* Joint pain [M25.50] INVALID FOR* Foot pain [M79.673] INVALID FOR* Hand weakness [R29.898] INVALID FOR* Medications Discontinued During This Encounter benzonatate (TESSALON PERLES) 100 mg* 30 c* 0 11/06/2015 11/05/2017 Route: ORAL Sig: Take 1 capsule by mouth three times daily as needed for Cough. Disc: Reason for discontinue is not on file. Encounter Status:Closed by YANIRA DRAPER DO on 11/05/17 ALLERGIES ALLERGIES DATE TYPE / CODE NAME / CODE REACTION SEVERITY SOURCE 05/20/2018 Environ/420 SEASONAL OTHER: SEE C [facility] [id number](SNOM ALLERGIES [facility] [place] ED CT) Repository Drug NO KNOWN [facility] Class/90304 ALLERGIES [address] [place] 1003(SNOMED Repository CT) ENCOUNTERS ENCOUNTERS ADMIT/DISCHARGE ACCOUNT ADMITTING ENCOUNTER LOCATION SOURCE NUMBER CLASS 07/12/2018/07/26/[id number] Repository 07/08/2018 [id number] [facility] ing:OPBI Repository 06/08/2018/06/10/[id number] Repository 05/20/2018/05/20/[id number] Repository 05/20/2018/05/20/20 [id number] Ambulatory [address] Repository 05/20/2018/05/21/[id number] Repository 04/26/2018 [id number] [facility] ing:LABSPEC Repository 03/28/2018 [id number] [facility] ing:MFPLAB Repository 12/12/2017/12/15/[id number] Repository 11/05/2017/11/07/[id number] Repository PAYERS PAYERS ENCOUNTER GUARANTOR PAYER SUBSCRIBER SOURCE 07/08/2018 JARON CASTREJONST15 Primary JARON PRATHER Insurance:[employer]ard CARREON: michelle Leal Number: [id number] [address]Kax: [phone] Repository Date:[id number], [place] [address]MN: 07/08/2018 Secondary NOT GIVENUNK [place] Insurance:SELF [facility] Effective Repository Date:2018-04-29 04/26/2018 JARON BARNARD Primary JARON [place] Insurance:AULTCAREPol CASHB: [facility] Number: [id number] [address]Lmf: [id number] Repository Date:[id number] [address], [place] [address]UR: 04/26/2018 Secondary NOT GIVENUNK [place] Insurance:SELF PAY [facility] Number: Effective Repository Date:2018-04-26 03/28/2018 JARON BARNARD Primary JARON GUTIERREZB: [place] Insurance:AULTCAREPol [id number] [address]Gof: [id number] Repository Date:[id number] [place] [address]MD: 03/28/2018 Secondary NOT GIVENUNK [place] Insurance:SELF PAY [facility] Number: Effective Repository Date:2018-03-28
== END ==
PROVIDERS: Family Provider Family Medicine; PCP Family Medicine; Referring Provider Obstetrics & Gynecology; Visit Provider Obstetrics & Gynecology
DX: Z12.31 Encounter for screening mammogram for malignant neoplasm of breast (principal)
CPT/HCPCS: 77063; 77067

== ENCOUNTER → 2019-07-10 09:57 | Outpatient (CLI) | payer OTHER, SELFPAY ==
--- NOTE | 2019-07-10 10:00 | BI_ITS ---
MAMMOGRAPHY - BILATERAL SCREENING REASON FOR EXAM: Female, 43 years old. Routine annual screening examination. PERTINENT HISTORY: Non-contributory. TECHNIQUE: Digital bilateral breast ron (3D mammographic acquisition) in the CC and MLO projections. 2-D mediolateral oblique (MLO) and craniocaudad (CC) views of both breasts were obtained. CAD: Full Field Digital Mammography with Computer Added Detection was performed. COMPARISON: Comparison is made with prior study dated July 08, 2018 and July 05, 2017. FINDINGS: Breast Composition: The breasts are heterogeneously dense, which may obscure small masses. There are no dominant masses or suspicious calcifications. No other significant abnormalities are identified. There has been no significant change since the prior study. BI/SCREEN MAMM (CAD) W/RON BILAT IMPRESSION: Stable bilateral screening mammogram. Yearly follow-up mammogram recommended. (A) ASSESSMENT CATEGORY: BIRADS Category 1: Negative. A letter regarding these results will be sent to the patient by the facility within 30 days. Approximately 10% of breast cancers are not detected by mammography. A normal mammogram should not delay biopsy of a clinically suspicious abnormality. [id number] Electronically Signed: Gabo Christiansen, at 11:49 EST , Service support ,
== END ==
PROVIDERS: Family Provider Family Medicine; PCP Family Medicine; Referring Provider Obstetrics & Gynecology; Visit Provider Obstetrics & Gynecology
DX: Z12.31 Encounter for screening mammogram for malignant neoplasm of breast (principal)
CPT/HCPCS: 77063; 77067

== ENCOUNTER → 2020-07-16 13:15 | Outpatient (CLI) | payer OTHER, SELFPAY ==
--- NOTE | 2020-07-16 13:19 | BI_ITS ---
MAMMOGRAPHY - BILATERAL SCREENING REASON FOR EXAM: Female, 44 years old. Routine annual screening examination. PERTINENT HISTORY: Non-contributory. TECHNIQUE: Digital bilateral breast ron (3D mammographic acquisition) in the CC and MLO projections. 2-D mediolateral oblique (MLO) and craniocaudad (CC) views of both breasts were obtained. CAD: Full Field Digital Mammography with Computer Added Detection was performed. COMPARISON: Comparison is made with prior study dated 07/10/2019 and 07/08/2018. FINDINGS: Breast Composition: The breasts are heterogeneously dense, which may obscure small masses. There are no dominant masses or suspicious calcifications. No other significant abnormalities are identified. There has been no significant change since the prior study. BI/SCREEN MAMM (CAD) W/RON BILAT IMPRESSION: Stable bilateral screening mammogram. Yearly follow-up mammogram recommended. (A) ASSESSMENT CATEGORY: BIRADS Category 1: Negative. A letter regarding these results will be sent to the patient by the facility within 30 days. Approximately 10% of breast cancers are not detected by mammography. A normal mammogram should not delay biopsy of a clinically suspicious abnormality. [id number] Electronically Signed: Gabo Christiansen, at 14:14 EST , Service support ,
== END ==
PROVIDERS: PCP Family Medicine; Referring Provider Student in an Organized Health Care Education/Training Program; Visit Provider Student in an Organized Health Care Education/Training Program
DX: Z12.31 Encounter for screening mammogram for malignant neoplasm of breast (principal)
CPT/HCPCS: 77063; 77067

== ENCOUNTER → 2021-02-18 11:08 | Outpatient (CLI) | payer OTHER, SELFPAY ==
--- NOTE | 2021-02-18 11:11 | VDLE_ITS ---
Reason For Study: r/o DVT Procedure LEFT This is a venous duplex using B-mode, color GSV is normal. flow and spectral Doppler. CFV is compressible, spontaneous, phasic, Exam performed in department. competent, and demonstrates normal A preliminary report was called and/or faxed augmentation. to Dr. He. FV is compressible, spontaneous, phasic, competent and demonstrates normal augmentation. POP V is compressible, spontaneous, phasic, competent and demonstrates normal augmentation. T/P Trunk is compressible. PTV is compressible. LT PerV is compressible. VL/Venous Duplex US, Unilateral Interpretation Summary There is no evidence of left lower extremity deep vein thrombosis. Left great s aphenous vein appears patent and compressible segmentally. Ordering Physician: Pablo He Referring Physician: Solo Yadav Performed By: Eunice Reyes, SASKIA, RVT
== END ==
PROVIDERS: PCP Family Medicine; Referring Provider Family Medicine; Visit Provider Family Medicine
DX: M79.605 Pain in left leg (principal)
CPT/HCPCS: 93971

== ENCOUNTER → 2021-07-11 | Outpatient (CLI) | payer OTHER, SELFPAY ==
[2021-07-14 10:16] LABS: HPV APTIMA, High Risk Negative (Negative)
== END | disposition home or self-care (01) ==
PROVIDERS: PCP Family Medicine; Visit Provider Student in an Organized Health Care Education/Training Program
DX: Z12.4 Encounter for screening for malignant neoplasm of cervix (principal)
CPT/HCPCS: 87624; 88175; G0145

== ENCOUNTER 2021-08-24 12:05 | Outpatient (CLI) | payer OTHER, SELFPAY ==
--- NOTE | 2021-08-24 12:08 | BI_ITS ---
MAMMOGRAPHY - BILATERAL SCREENING REASON FOR EXAM: Female, 46 years old. Routine annual screening examination. PERTINENT HISTORY: Non-contributory. TECHNIQUE: Digital bilateral breast ron (3D mammographic acquisition) in the CC and MLO projections. 2-D mediolateral oblique (MLO) and craniocaudad (CC) views of both breasts were obtained. CAD: Full Field Digital Mammography with Computer Added Detection was performed. COMPARISON: Comparison is made with prior study dated 07/16/2020 and 07/10/2019. FINDINGS: Breast Composition: The breasts are extremely dense, which lowers the sensitivity of mammography. There are no dominant masses or suspicious calcifications. No other significant abnormalities are identified. There has been no significant change since the prior study. BI/SCRN MAMM (CAD)W/RON BILAT IMPRESSION: Stable bilateral screening mammogram. Yearly follow-up mammogram recommended. (A) ASSESSMENT CATEGORY: BIRADS Category 1: Negative. A letter regarding these results will be sent to the patient by the facility within 30 days. Approximately 10% of breast cancers are not detected by mammography. A normal mammogram should not delay biopsy of a clinically suspicious abnormality. [id number] Electronically Signed: Gabo Christiansen MD at 12:43 EST , Service support ,
== END 2021-08-24 23:59 | disposition short-term general hospital (02) ==
LOC: OPBI 12:07
PROVIDERS: PCP Family Medicine; Referring Provider Student in an Organized Health Care Education/Training Program; Visit Provider Student in an Organized Health Care Education/Training Program
DX: Z12.31 Encounter for screening mammogram for malignant neoplasm of breast (principal)
CPT/HCPCS: 77063; 77067

== ENCOUNTER → 2022-10-16 | Outpatient (CLI) | payer OTHER, SELFPAY ==
[2022-10-16 10:07] LABS: Anion Gap 6 (5-15); BUN 14 mg/dL (7-18); Calcium,Total 8.9 mg/dL (8.5-10.1); Chloride 107 mmol/L (98-107); Cholesterol 142 mg/dL (200); Creatinine, Serum 0.54 mg/dL (0.55-1.02); EST Glomerular Filtration Rate 129 mL/min (>60); Est Glom Filt Rate - Afr Amer 157 mL/min (>60); Glucose 80 mg/dL (74-106); High Density Lipoprotein 56 mg/dL; Potassium 3.7 mmol/L (3.5-5.1); Sodium Level 141 mmol/L (136-145); Triglycerides 61 mg/dL; Very Low Density Lipoprotein 12 mg/dL (5-40)
[2022-10-16 10:17] LABS: Vitamin D,25 Hydroxy 92.6 ng/mL
== END | disposition home or self-care (01) ==
PROVIDERS: PCP Family Medicine; Visit Provider Family Medicine
DX: Z13.1 Encounter for screening for diabetes mellitus (principal); Z13.220 Encounter for screening for lipoid disorders
CPT/HCPCS: 36415; 80048; 80061; 82306

== ENCOUNTER → 2023-04-04 | Outpatient (CLI) | payer OTHER, SELFPAY ==
--- NOTE | 2023-04-04 14:19 | BI_ITS ---
MAMMOGRAPHY - BILATERAL SCREENING REASON FOR EXAM: Female, 47 years old. Routine annual screening examination. PERTINENT HISTORY: Non-contributory. TECHNIQUE: Digital bilateral breast ron (3D mammographic acquisition) in the CC and MLO projections. 2-D mediolateral oblique (MLO) and craniocaudad (CC) views of both breasts were obtained. CAD: Full Field Digital Mammography with Computer Added Detection was performed. COMPARISON: Comparison is made with prior study August 24, 2021 and July 16, 2020. FINDINGS: Breast Composition: The breasts are extremely dense, which lowers the sensitivity of mammography. There are no dominant masses or suspicious calcifications. No other significant abnormalities are identified. There has been no significant change since the prior study. BI/SCRN MAMM (CAD)W/RON BILAT IMPRESSION: Stable bilateral screening mammogram. Yearly follow-up mammogram recommended. (A) ASSESSMENT CATEGORY: BIRADS Category 1: Negative. A letter regarding these results will be sent to the patient by the facility within 30 days. Approximately 10% of breast cancers are not detected by mammography. A normal mammogram should not delay biopsy of a clinically suspicious abnormality. [id number] Electronically Signed: Gabo Christiansen MD at 15:09 EDT ,
== END | disposition home or self-care (01) ==
LOC: OPBI 14:17
PROVIDERS: PCP Family Medicine; Referring Provider Obstetrics & Gynecology; Visit Provider Obstetrics & Gynecology
DX: Z12.31 Encounter for screening mammogram for malignant neoplasm of breast (principal)
CPT/HCPCS: 77063; 77067

== ENCOUNTER → 2024-05-21 | Outpatient (CLI) | payer OTHER, SELFPAY ==
--- NOTE | 2024-05-21 09:26 | BI_ITS ---
MAMMOGRAPHY - BILATERAL SCREENING 3-D TOMOSYNTHESIS REASON FOR EXAM: Female, 48 years old. SCREENING PERTINENT HISTORY: No significant family history. TECHNIQUE: 2-D mammograms and 3-D Tomosynthesis of the breast (s) were performed. CAD was performed. COMPARISON: 04/04/2023 FINDINGS: The breast composition is heterogeneously dense that can obscure small breast masses. Scattered benign calcifications are seen. No dense spiculated masses or suspicious microcalcifications are identified. No architectural distortion is identified. There is no skin thickening or retraction. There has been no significant change since the prior study. BI/SCRN MAMM (CAD)W/RON BILAT IMPRESSION: No mammographic signs of malignancy. Routine yearly mammograms recommended. ASSESSMENT CATEGORY: BIRADS Category 1: Negative. A letter regarding these results will be sent to the patient by the facility within 30 days. FOLLOW UP RECOMMENDATION: Yearly follow up mammogram recommended. (A) Approximately 10% of breast cancers are not detected by mammography. A normal mammogram should not delay biopsy of a clinically suspicious abnormality. Electronically Signed: Jonathan Rooney MD at 12:29 EDT ,
== END | disposition home or self-care (01) ==
LOC: OPBI 09:05
PROVIDERS: PCP Family Medicine; Referring Provider Obstetrics & Gynecology; Visit Provider Obstetrics & Gynecology
DX: Z12.31 Encounter for screening mammogram for malignant neoplasm of breast (principal)
CPT/HCPCS: 77063; 77067

== ENCOUNTER → 2025-07-10 | Outpatient (CLI) | payer OTHER, SELFPAY ==
--- NOTE | 2025-07-10 14:54 | BI_ITS ---
EXAM: SCRN MAMM (CAD)W/RON BILAT DATE: 07/10/2025 CLINICAL HISTORY: F, Age 49 y/o , SCREENING TECHNIQUE: Procedure Code: [id number] Modality: MG Procedure: SCRN MAMM (CAD)W/RON BILAT COMPARISON: Prior exam(s) dated 05/21/2024, 04/04/2023, and 08/24/2021. FINDINGS: TISSUE DENSITY: The breasts are heterogeneously dense, which may obscure small masses. Bilateral Breast Mammographic Findings: Benign-appearing round microcalcifications are seen in both breasts. Stable nodular densities are seen in both breast. No suspicious masses, suspicious cluster of microcalcifications, architectural distortion or secondary sign of malignancy is identified in either breast. BI/SCRN MAMM (CAD)W/RON BILAT IMPRESSION: Benign screening mammogram OVERALL FINAL ASSESSMENT BI-RADS 2: BENIGN RECOMMENDATION: Routine annual follow-up in 1 Year Additional Recommendation none A letter with findings and recommendations will be mailed to the patient. Reading Location: [id number]
== END | disposition home or self-care (01) ==
LOC: OPBI 14:52
PROVIDERS: PCP Family Medicine; Referring Provider Obstetrics & Gynecology; Visit Provider Obstetrics & Gynecology
DX: Z12.31 Encounter for screening mammogram for malignant neoplasm of breast (principal)
CPT/HCPCS: 77063; 77067

== ENCOUNTER → 2025-07-21 | Outpatient (CLI) | payer OTHER, SELFPAY ==
--- NOTE | 2025-07-21 15:15 | RAD_ITS ---
PROCEDURE: HAND MIN 3 VIEWS 07/21/2025 REASON FOR EXAM: R HAND, SPECIFICIALLY 1ST AND 2ND DIP. 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 There is collapse of the proximal carpal row with articulation of the capitate with the distal radioulnar joint. There is severe arthritis of the interphalangeal joint of the thumb and distal interphalangeal joint of the 2nd digit. No acute fracture or dislocation is identified. No focal radiopaque foreign body or soft tissue abnormality is identified. 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 There is collapse of the proximal carpal row with articulation of the capitate with the distal radioulnar joint. There is severe arthritis of the interphalangeal joint of the thumb and distal interphalangeal joint of the 2nd digit. Reading Location: [facility]
[2025-07-21 17:45] LABS: Hematocrit 39.0 % (37-47); Hemoglobin 12.8 g/dL (12.0-15.0); Immature Granulocytes Count 0.010 X10^3/uL (0.0-0.0); Mean Corp Hgb Conc 32.8 g/dL (32-36); Mean Corpuscular Volume 88.0 fL (81-99); Mean Platelet Vol. 10.5 fl (6.2-12.0); NRBC Flagged by Analyzer 0 % (0-5); Platelet Count 205 K/mm3 (150-450); RBC Distribution Width CV 12.3 % (11.6-14.6); RBC Distribution Width SD 39.7 fl (35.1-43.9); Red Blood Count 4.43 M/mm3 (4.2-5.4); White Blood Count 6.1 K/mm3 (4.4-11.0)
[2025-07-21 18:26] LABS: AST(SGOT) 22 U/L (<=31); Alanine Aminotransfer ALT/SGPT 21 U/L (<=34); Albumin, Serum 4.3 g/dL (3.5-5.0); Alkaline Phosphatase 64 U/L (35-104); Anion Gap 10 (5-15); BUN 12 mg/dL (4-19); BUN/Creat Ratio 20.6 RATIO (10-20); Calcium,Total 9.2 mg/dL (7.6-11.0); Carbon Dioxide 26.8 mmol/L (21.0-32.0); Chloride 102 mmol/L (98-108); Globulin 2.6 g/dL (2.2-4.2); Glucose 100 mg/dL (70-99); Potassium 3.9 mmol/L (3.3-5.1)
[2025-07-21 18:56] LABS: Vitamin D,25 Hydroxy 141.0 ng/mL (30-100)
[2025-07-21 19:34] LABS: CRP 4.97 mg/L (0.0-3.0); Uric Acid 3.8 mg/dL (2.6-6.0)
[2025-07-23 13:08] LABS: ANTINUCLEAR ANTIBODIES DIRECT Positive (Negative)
== END | disposition home or self-care (01) ==
PROVIDERS: PCP Family Medicine; Referring Provider Family Medicine; Visit Provider Family Medicine
DX: M13.0 Polyarthritis, unspecified (principal)
CPT/HCPCS: 36415; 73130; 80053; 82306; 84443; 84550; 85025; 85652; 86038; 86140; 86200; 86431